=== PATIENT | female | born 1945 | race Caucasian/White ===

== ENCOUNTER → 2016-12-25 | Outpatient (CLI) | payer MEDICARE ==
[~2016-12-25] MED LIST: ACETAMINOPHEN325 M2 PO; ALBUTEROL0.09 MG/A2 IH; ASPIRIN81 M1 PO; ATENOLOL25 MG PO; AZITHROMYCIN250 MG PO; BACTRIM DS 8001 TA1 PO; BAYER ASPIRIN R81 MG; CATAPRES0.1 MG PO; CLINDAMYCIN150 MG PO; CLONIDINE0.1 MG PO; CLONIDINE0.3 MG PO; COREG12.5 MG PO; DELTASONE20 MG PO; FLONASE 0.05% 121 EA NAS; HYDROCODONE BIT1 T11 PO; IMODIUM A-D2 MG PO; KEFLEX250 MG PO; KEFLEX500 MG PO; LASIX40 MG PO; LEVOFLOXACIN500 MG PO; LISINOPRIL10 MG PO; LISINOPRIL20 MG PO; LISINOPRIL40 MG PO; LOPRESSOR25 MG PO; MUCINEX DM 30/61 TAB PO; NEPHRO-VITE1 TAB PO; NORVASC5 MG PO; PHOSLO667 M1 PO; PREDNISONE10 MG PO; PREDNISONE20 MG PO; PRILOSEC20 MG PO; PROTONIX TR40 MG PO; PROTONIX40 MG PO; QUINAPRIL20 MG PO; REGLAN10 MG PO; RENAL CAPS1 SGL PO; SENSIPAR60 MG PO; TENORMIN25 MG PO; ZESTRIL,PRINIVI10 MG PO; ZITHROMAX250 MG PO; Zofran4 MG PO; [UNRECOGNIZED DRUG - OTHER]
== END | disposition home or self-care (01) ==
LOC: RAD 10:51
DX: J44.9 Chronic obstructive pulmonary disease, unspecified (principal); R76.11 Nonspecific reaction to tuberculin skin test without active tuberculosis; F17.200 Nicotine dependence, unspecified, uncomplicated

== ENCOUNTER 2017-06-11 11:00 | Inpatient (IN) | payer MEDICARE ==
[~2017-06-11] VITALS: Ht 162.6 cm; Wt 63.1 kg
--- NOTE | ~2017-06-11 | PR ---
[place], [place] PROGRESS NOTE NAME: NAGA ROSARIO UNIT #: [id number] ROOM: 531 DOCTOR: JESSIKA SMILEY,SUNDEEP Enriquez BIRTHDATE: [birth year] DOS: 06/14/2017 SUBJECTIVE: The patient was seen and examined. She is awake and alert. She denies shortness of breath. She was on room air. She did have some "congestion." She states she is probably going to be discharged tomorrow. PHYSICAL EXAMINATION: VITAL SIGNS: Showed temperature 97.9, pulse 68, respiration 18, blood pressure 125/42. HEENT AND NECK: Shows no JVD. LUNGS: Had diminished breath sounds with no wheeze. HEART: Normal S1, S2. No rub, thrill or gallop. ABDOMEN: Soft, nontender. There is no organomegaly. EXTREMITIES: Showed no edema. LABORATORY DATA: Hemoglobin 10.0, white count of 5.4, platelets 204. Sodium 138, potassium 4.3, CO2 of 33, BUN 24, creatinine 4.8, glucose 81, calcium 8.4, phosphorus 3.9, magnesium 2.2, albumin of 3.5. ASSESSMENT AND PLAN:: 1. End-stage renal disease. The patient is on hemodialysis Friday, Friday and Friday. Next dialysis will be on Friday as planned and scheduled. 2. Anemia. We will give as needed erythropoietin stimulating agents with dialysis. 3. Tertiary hyperparathyroidism. The patient is on phosphorus binders as well as Sensipar. 4. Hypertension. Continue medications. From a renal standpoint, she is acceptable for discharge. SUNDEEP ROSEN MD CM:PNTRANS 29 23 SUNDEEP ROSEN MD 06/14/171923 interface
[~2017-06-11 11:00] MED LIST changes: +PHOSLYRA667 MG/51 PO
[2017-06-11 11:13] VITALS: BP 138/52
[2017-06-11 12:09] LABS: BASO # 0.1 10*3/uL (0.0-0.1); BASO % 1.1 % (0.0-1.0); EOS # 0.3 10*3/uL (0.0-0.4); EOS % 4.6 % (1.0-4.0); HEMATOCRIT 28.2 % (37.0-47.0); HEMOGLOBIN 9.5 g/dl (12.0-16.0); LYMPH # 0.8 10*3/uL (1.3-4.4); LYMPH % 14.2 % (27.0-41.0); MEAN CELL VOLUME 97.2 fl (81.0-99.0); MEAN CORPUSCULAR HGB 32.8 pg (27.0-31.0); MEAN CORPUSCULAR HGB CONC 33.7 g/dl (33.0-37.0); MEAN PLATELET VOLUME 11.2 fl (9.6-12.3); MONO # 0.4 10*3/uL (0.1-1.0); MONO % 6.6 % (3.0-9.0); NEUT # 4.1 10*3/uL (2.3-7.9); PLATELET COUNT AUTOMATED 200 10*3/uL (130-400); RED CELL DISTRI WIDTH 13.7 % (0-14.5); WHITE BLOOD COUNT 5.6 10*3/uL (4.8-10.8)
[2017-06-11 12:25] LABS: ALBUMIN 3.5 gm/dl (3.1-4.5); CREATININE 2.79 mg/dL (0.55-1.02); POTASSIUM 3.5 mmol/L (3.5-5.1); TOTAL PROTEIN 7.4 gm/dL (6.4-8.2)
[2017-06-11 12:58] VITALS: BP 149/51
[2017-06-11 14:45] VITALS: BP 142/60
--- NOTE | 2017-06-11 14:45 | NUR ---
A 71, admitted to , under the services of ASHU Huang DO with a diagnosis of CHF. Chief complaint is SHORTNESS OF BREATH AND COUGH LAST NIGHT, NONE TODAY. Patient arrived via stretcher from ER. Monitor applied. Initial assessment completed. Vital signs taken and recorded. ASHU HUANG DO notified of admission to the unit. Orders received. See assessment for past medical history, medications and allergies. Patient and/or family oriented to unit. [facility] visitation policy reviewed. Clothing/patient valuable form completed. MARIO VICTORIA
[2017-06-11 15:00] VITALS: BP 142/60
[2017-06-11] MEDS ORDERED: ONE DAILY1 EACH PO (15:44)
[2017-06-11 16:00] VITALS: BP 159/50
--- NOTE | 2017-06-11 18:36 | NUR ---
NOTIFIED OF ELEVATED TROPONIN. NO NEW ORDERS.
[2017-06-11 20:00] VITALS: BP 142/52; BP 155/79
--- NOTE | 2017-06-11 20:00 | NUR ---
LAB RESULTS AND ORDERS REVIEWED. PT RESTING IN BED. NO S AND S OF ACUTE DISTRESS NOTED AT THIS TIME. RESPS EASY AND UNLABORED. CALL LIGHT REINFORCED.
--- NOTE | 2017-06-11 21:20 | NUR ---
LAB NOTIFIED RN OF TROP 0.302. RN NOTIFIED DR WALTERS OF THIS VALUE. NO NEW ORDERS RECEIVED AT THIS TIME.
[2017-06-12] VITALS: BP 154/48
--- NOTE | 2017-06-12 00:02 | NUR ---
LAB NOTIFIED RN OF TROP 0.315. RN NOTIFIED DR WALTERS OF THIS VALUE. NO NEW ORDER RECEIVED.
[2017-06-12 04:00] VITALS: BP 139/84
--- NOTE | 2017-06-12 05:00 | NUR ---
PT RESTING IN BED WITH EYES CLOSED. RESPS EASY AND UNLABORED. TELE MONTIOR INTACT. CALL LIGHT IN REACH.
[2017-06-12 06:46] LABS: BASO # 0.1 10*3/uL (0.0-0.1); BASO % 0.9 % (0.0-1.0); EOS # 0.4 10*3/uL (0.0-0.4); EOS % 6.6 % (1.0-4.0); HEMATOCRIT 27.4 % (37.0-47.0); HEMOGLOBIN 9.1 g/dl (12.0-16.0); MEAN CELL VOLUME 97.9 fl (81.0-99.0); MEAN CORPUSCULAR HGB 32.5 pg (27.0-31.0); MEAN CORPUSCULAR HGB CONC 33.2 g/dl (33.0-37.0); MEAN PLATELET VOLUME 11.4 fl (9.6-12.3); MONO # 0.4 10*3/uL (0.1-1.0); MONO % 7.9 % (3.0-9.0); NEUT # 3.8 10*3/uL (2.3-7.9); NEUT % 67.1 % (47.0-73.0); PLATELET COUNT AUTOMATED 191 10*3/uL (130-400); RED CELL DISTRI WIDTH 13.5 % (0-14.5); WHITE BLOOD COUNT 5.6 10*3/uL (4.8-10.8)
[2017-06-12 07:19] LABS: CREATININE 4.84 mg/dL (0.55-1.02); PHOSPHOROUS 4.4 mg/dL (2.5-4.9); POTASSIUM 3.8 mmol/L (3.5-5.1)
[2017-06-12 07:27] LABS: THYROID STIM HORMONE (HS) 1.09 uIU/ml (0.358-4.75)
[2017-06-12 08:00] VITALS: BP 160/62
--- NOTE | 2017-06-12 08:04 | NUR ---
PT IN BED. LAYING DOWN. LIGHTS OFF. LUNGS DIMINISHED AND CLEAR. TRACE EDEMA NOTED. IV FLUSHED FOR PATENCY. PT IS PLEASANT AND COOPERATIVE. WILL CONTINUE TO MONITOR.
[2017-06-12 08:35] LABS: VITAMIN D, 25-HYDROXY 44.9 ng/mL (30-100)
--- NOTE | 2017-06-12 09:00 | NUR ---
Microeconomics Professor in to talk to patient. Patient states lives at home with , daughter has been staying. There are few steps in the home. Physician: hiren moreno Pharmacy: [facility] Home health services: none Patient's level of ADLs: INDEPENDENT Patient has working utilities: all working DME: none Follow-up physician's appointment after d/c: will be made by hospitalist nurse director upon discharge Does patient want to access PORTAL?: no Discharge plan discussed with patient, patient lives at home with , but states has been in a [facility] for the last few months, she also stated her daughter has been staying with her, she is independent in adls and ambulation, patient goes to dialysis friday, friday and friday, she states she drives occasionally, but daughter takes her wherever she needs to go and she also uses [facility] services for dialysis, irmatent states she will be going home when able, discussed with her [facility] and she refused any services at this time. KELLY SARMIENTO
[2017-06-12 12:00] VITALS: BP 141/51
--- NOTE | 2017-06-12 15:36 | NUR ---
PT REQUESTED MEDICATION FOR SORE THROAT AND DRY COUGH. PRN CEPACOL LOZENGE GIVEN. WILL CONTINUE TO MONITOR.
[2017-06-12 16:00] VITALS: BP 153/60
--- NOTE | 2017-06-12 16:13 | NUR ---
PER PT, PRN CEPACOL DROP WAS EFFECTVE FOR SORE THROAT IRRITATION. WILL CONTINUE TO MONITOR.
--- NOTE | 2017-06-12 17:12 | NUR ---
THIS NURSE OBSERVED THAT CARDIOLOGY HAS NOT SEEN THE PT YET. ANSWERING SERVICE NOTIFIED OF CONSULT FOR CARDIOLOGY AGAIN. AWAITING CALL BACK.
[2017-06-12 20:00] VITALS: BP 141/46
--- NOTE | 2017-06-12 22:54 | NUR ---
PATIENT LYING IN BED, TALKING ON PHONE. NO S/S OF DISTRESS. LUNGS ARE CLEAR, DIMINISHED. NO EDEMA NOTED. BRUIT/THRILL ARE POSITIVE. IV IN LAC INTACT WITH HEPLOCK.
[2017-06-13] VITALS: BP 184/42
[2017-06-13 07:38] LABS: BASO # 0.1 10*3/uL (0.0-0.1); BASO % 0.8 % (0.0-1.0); EOS # 0.6 10*3/uL (0.0-0.4); EOS % 8.8 % (1.0-4.0); HEMATOCRIT 27.3 % (37.0-47.0); HEMOGLOBIN 9.2 g/dl (12.0-16.0); LYMPH # 0.9 10*3/uL (1.3-4.4); LYMPH % 14.2 % (27.0-41.0); MEAN CELL VOLUME 96.1 fl (81.0-99.0); MEAN CORPUSCULAR HGB 32.4 pg (27.0-31.0); MEAN CORPUSCULAR HGB CONC 33.7 g/dl (33.0-37.0); MEAN PLATELET VOLUME 11.1 fl (9.6-12.3); MONO # 0.5 10*3/uL (0.1-1.0); MONO % 7.2 % (3.0-9.0); NEUT # 4.5 10*3/uL (2.3-7.9); NEUT % 68.7 % (47.0-73.0); PLATELET COUNT AUTOMATED 189 10*3/uL (130-400); RED BLOOD COUNT 2.84 10*6/uL (4.10-5.10); RED CELL DISTRI WIDTH 13.5 % (0-14.5); WHITE BLOOD COUNT 6.6 10*3/uL (4.8-10.8)
[2017-06-13 07:50] LABS: ALBUMIN 3.3 gm/dl (3.1-4.5); CREATININE 6.97 mg/dL (0.55-1.02); PHOSPHOROUS 4.7 mg/dL (2.5-4.9); POTASSIUM 4.4 mmol/L (3.5-5.1)
[2017-06-13 08:00] VITALS: BP 150/53
--- NOTE | 2017-06-13 10:45 | NUR ---
PATIENT NOT AVAILABLE FOR ECHO. SHE IS IN DIALYSIS.
[2017-06-13 12:00] VITALS: BP 135/50
--- NOTE | 2017-06-13 15:05 | NUR ---
TYLENOL GIVEN FOR C/O GENERALIZED DISCOMFORT. WILL MONITOR.
[2017-06-13 16:00] VITALS: BP 123/40
--- NOTE | 2017-06-13 19:57 | NUR ---
ASSUMED CARE OF PT. PT ASSESSED AND PLAN OF CARE IMPLIMENTED
[2017-06-13 20:00] VITALS: BP 137/48
[2017-06-14] VITALS: BP 139/57
[2017-06-14 06:54] LABS: BASO # 0.1 10*3/uL (0.0-0.1); BASO % 0.9 % (0.0-1.0); EOS # 0.6 10*3/uL (0.0-0.4); EOS % 11.1 % (1.0-4.0); HEMATOCRIT 29.8 % (37.0-47.0); LYMPH % 18.6 % (27.0-41.0); MEAN CELL VOLUME 97.4 fl (81.0-99.0); MEAN CORPUSCULAR HGB 32.7 pg (27.0-31.0); MEAN CORPUSCULAR HGB CONC 33.6 g/dl (33.0-37.0); MEAN PLATELET VOLUME 11.6 fl (9.6-12.3); MONO # 0.5 10*3/uL (0.1-1.0); NEUT # 3.2 10*3/uL (2.3-7.9); NEUT % 59.2 % (47.0-73.0); PLATELET COUNT AUTOMATED 204 10*3/uL (130-400); RED BLOOD COUNT 3.06 10*6/uL (4.10-5.10); RED CELL DISTRI WIDTH 13.5 % (0-14.5); WHITE BLOOD COUNT 5.4 10*3/uL (4.8-10.8)
[2017-06-14 07:32] LABS: POTASSIUM 4.3 mmol/L (3.5-5.1)
[2017-06-14 07:37] LABS: ALBUMIN 3.5 gm/dl (3.1-4.5); CREATININE 4.77 mg/dL (0.55-1.02); PHOSPHOROUS 3.9 mg/dL (2.5-4.9)
[2017-06-14 08:00] VITALS: BP 132/38
[2017-06-14 12:00] VITALS: BP 125/42
[2017-06-14 16:00] VITALS: BP 140/50
[2017-06-14 20:00] VITALS: BP 127/43
[2017-06-15] VITALS: BP 146/50
--- NOTE | 2017-06-15 04:35 | NUR ---
PATIENTS DIALYSIS SITE WAS POSITIVE FOR BRUIT AND THRILL.
[2017-06-15 08:00] VITALS: BP 158/53
[2017-06-15] MEDS ORDERED: AVPAK AZITHROM250 MG PO (10:25)
[2017-06-15] MEDS ORDERED: SUPRAX400 M2 PO (10:25)
[2017-06-15] MEDS ORDERED: TEMAZEPAM15 M1 PO (10:25)
--- NOTE | 2017-06-15 14:15 | NUR ---
Discharge instructions reviewed with patient/family. Patient receptive and verbalizes understanding. Follow-up care arranged. Written instructions given to patient/family.HEPLOCK REMOVED AND TELEMETRY ACCOUNTECD FOR. WERNER LOPEZ
== END 2017-06-15 14:15 | disposition home or self-care (01) | DRG 291 ==
LOC: ED 11:00 → 5E 13:55 → EDHOLD 13:55 → 5E 14:15
PROVIDERS: Internal Medicine; Internal Medicine Nephrology; Physician Assistant; ADMIT Internal Medicine
PROC: 5A1D70Z Performance of Urinary Filtration, Intermittent, Less than 6 Hours Per Day (ICD-10-PCS; principal; 2017-06-13)
PROC: 5A1D70Z Performance of Urinary Filtration, Intermittent, Less than 6 Hours Per Day (ICD-10-PCS; 2017-06-14)
DX: I13.2 Hypertensive heart and chronic kidney disease with heart failure and with stage 5 chronic kidney disease, or end stage renal disease (principal); N18.6 End stage renal disease; E87.8 Other disorders of electrolyte and fluid balance, not elsewhere classified; I50.43 Acute on chronic combined systolic (congestive) and diastolic (congestive) heart failure; D64.9 Anemia, unspecified; K21.9 Gastro-esophageal reflux disease without esophagitis; R07.89 Other chest pain; D72.824 Basophilia; R73.9 Hyperglycemia, unspecified; E21.2 Other hyperparathyroidism; R74.8 Abnormal levels of other serum enzymes; Z79.899 Other long term (current) drug therapy; Z88.5 Allergy status to narcotic agent; Z88.0 Allergy status to penicillin; Z88.8 Allergy status to other drugs, medicaments and biological substances; Z99.2 Dependence on renal dialysis; Z72.89 Other problems related to lifestyle; Z80.1 Family history of malignant neoplasm of trachea, bronchus and lung; Z80.0 Family history of malignant neoplasm of digestive organs; Z87.19 Personal history of other diseases of the digestive system

== ENCOUNTER 2017-07-15 23:24 | Emergency (ER) | payer MEDICARE ==
[~2017-07-15] VITALS: Wt 68.0 kg
--- NOTE | ~2017-07-15 | EKG ---
[place], [place] ELECTROCARDIOGRAM REPORT NAME: NAGA ROSARIO UNIT #: [id number] ROOM: DOCTOR: JORGE ARBOLEDA MD BIRTHDATE: [birth year] DOS: 07/15/2017 TIME: 2346 hours. IMPRESSION: 1. Sinus bradycardia at 53 beats per minute. 2. There is no first degree heart block. 3. Complete left bundle-branch block with a repolarization abnormality. 4. An abnormal ECG. 5. No previous tracing is available for comparison. JORGE ARBOLEDA MD CM:EKGRPT:ELECTROCARDIOGRAM REPORT [id number] JORGE ARBOLEDA MD
[~2017-07-15 23:24] MED LIST changes: +AVPAK AZITHROM250 MG PO; +ONE DAILY1 EACH PO; +SUPRAX400 M2 PO; +TEMAZEPAM15 M1 PO
[2017-07-16 00:16] LABS: BASO # 0.1 10*3/uL (0.0-0.1); BASO % 0.6 % (0.0-1.0); EOS # 0.5 10*3/uL (0.0-0.4); EOS % 5.5 % (1.0-4.0); HEMATOCRIT 27.8 % (37.0-47.0); HEMOGLOBIN 8.8 g/dl (12.0-16.0); LYMPH # 2.5 10*3/uL (1.3-4.4); LYMPH % 30.6 % (27.0-41.0); MEAN CELL VOLUME 105.3 fl (81.0-99.0); MEAN CORPUSCULAR HGB 33.3 pg (27.0-31.0); MEAN CORPUSCULAR HGB CONC 31.7 g/dl (33.0-37.0); MEAN PLATELET VOLUME 11.3 fl (9.6-12.3); MONO # 0.8 10*3/uL (0.1-1.0); MONO % 9.5 % (3.0-9.0); NEUT # 4.4 10*3/uL (2.3-7.9); NEUT % 53.4 % (47.0-73.0); PLATELET COUNT AUTOMATED 207 10*3/uL (130-400); RED BLOOD COUNT 2.64 10*6/uL (4.10-5.10); RED CELL DISTRI WIDTH 14.1 % (0-14.5); WHITE BLOOD COUNT 8.2 10*3/uL (4.8-10.8)
[2017-07-16 00:26] LABS: ACT PARTIAL THROMBO TIME 25.9 SECONDS (20.8-31.5); INTERNATIONAL NORM RATIO 1.1 (2.0-3.5)
[2017-07-16 00:34] LABS: ALBUMIN 2.6 gm/dl (3.1-4.5); CREATININE 7.17 mg/dL (0.55-1.02); POTASSIUM 4.9 mmol/L (3.5-5.1); TOTAL PROTEIN 5.3 gm/dL (6.4-8.2)
[2017-07-16 00:46] LABS: TROPONIN I 0.326 ng/ml (<0.045)
== END 2017-07-16 00:10 | disposition short-term general hospital (02) ==
LOC: ED 23:24
PROVIDERS: Student in an Organized Health Care Education/Training Program
DX: S41.111A Laceration without foreign body of right upper arm, initial encounter (principal); J96.90 Respiratory failure, unspecified, unspecified whether with hypoxia or hypercapnia; D62 Acute posthemorrhagic anemia; F10.10 Alcohol abuse, uncomplicated; X58.XXXA Exposure to other specified factors, initial encounter; Y93.89 Activity, other specified; Y92.89 Other specified places as the place of occurrence of the external cause; Y99.8 Other external cause status; Z88.0 Allergy status to penicillin; Z88.8 Allergy status to other drugs, medicaments and biological substances; Z79.899 Other long term (current) drug therapy

== ENCOUNTER → 2017-07-24 | Outpatient (CLI) | payer MEDICARE | END | disposition home or self-care (01) | LOC: US 12:23 | DX: N93.9 Abnormal uterine and vaginal bleeding, unspecified (principal); D25.9 Leiomyoma of uterus, unspecified ==

== ENCOUNTER → 2017-08-28 | Day surgery (SDC) | payer MEDICARE ==
[~2017-08-28] VITALS: Ht 162.5 cm; Wt 64.0 kg
[~2017-08-28] MED LIST changes: +NORCO 5-325 TA1 EACH PO
--- NOTE | ~2017-08-28 | PROC NOTE ---
[place], [place] PROCEDURE NOTE NAME: NAGA ROSARIO UNIT #: [id number] ROOM: DOCTOR: GERSON CANO MD BIRTHDATE: [birth year] DOS: 08/28/2017 PREOPERATIVE DIAGNOSIS: Back cyst. POSTOPERATIVE DIAGNOSIS: Back cyst. PROCEDURE: Excision of back cyst. SURGEON: Gerson Cano MD WEAVING LOOM OPERATOR: LAURI. ANESTHESIA: MAC with local (8 mL of 1% plain lidocaine). INDICATIONS: This is a 71-year-old lady who is here for an excision of a back cyst. The procedure and its complications were explained to the patient in detail. Complications that were discussed included but were not limited to bleeding, infection, hematoma/seroma/abscess formation and prolonged pain. She agreed to proceed. DESCRIPTION OF PROCEDURE: After identifying the patient, the patient was brought to the operating suite and placed in the right lateral position. After time-out procedure was called, IV sedation was administered by the anesthesia team. The parts were then painted and draped in the usual sterile fashion. An incision was marked in a transverse fashion over the cyst and local anesthesia (1% plain lidocaine) was injected in the line of the marked incision. Incision was made with the help of a knife and deepened in layers. The cyst was identified and excised in its entirety with the help of blunt and sharp dissection. It was sent for histopathological diagnosis. Hemostasis was achieved with the help of electrocautery. Thereafter, the subcutaneous tissue was approximated with the help of interrupted 3-0 Vicryl and the skin edges were approximated with the help of subcuticular 4-0 Vicryl. Dressing was placed. The patient tolerated the procedure well and was brought back to the recovery room in stable fashion. There were no complications. Dr. Gerson Cano, the attending surgeon, was present throughout the operating case. Gerson Cano MD CM:PROCNOTE:PROCEDURE NOTE [id number] GERSON CANO MD
[2017-08-28 07:05] VITALS: BP 151/60
[2017-08-28 07:53] VITALS: BP 117/49
[2017-08-28 08:08] VITALS: BP 101/35
[2017-08-28 08:19] VITALS: BP 117/43
== END ==
LOC: SDC 08-26 11:00
DX: L72.0 Epidermal cyst (principal); I13.2 Hypertensive heart and chronic kidney disease with heart failure and with stage 5 chronic kidney disease, or end stage renal disease; N18.6 End stage renal disease; I50.9 Heart failure, unspecified; Z99.2 Dependence on renal dialysis; K58.9 Irritable bowel syndrome, unspecified; J44.9 Chronic obstructive pulmonary disease, unspecified; Z86.14 Personal history of Methicillin resistant Staphylococcus aureus infection; I25.10 Atherosclerotic heart disease of native coronary artery without angina pectoris; I25.2 Old myocardial infarction; Z80.9 Family history of malignant neoplasm, unspecified; Z87.891 Personal history of nicotine dependence; Z98.890 Other specified postprocedural states; Z79.899 Other long term (current) drug therapy; Z88.0 Allergy status to penicillin; Z88.8 Allergy status to other drugs, medicaments and biological substances

== ENCOUNTER → 2017-09-18 | Outpatient (CLI) | payer MEDICARE | END | disposition home or self-care (01) | LOC: US 13:47 | DX: M79.89 Other specified soft tissue disorders (principal); R60.0 Localized edema ==

== ENCOUNTER 2017-10-02 04:09 | Inpatient (IN) | payer MEDICARE ==
[2017-10-02] VITALS (10 sets, daily range): BP systolic 141–195; BP diastolic 60–89
[~2017-10-02] VITALS: Ht 162.5 cm; Wt 66.8 kg
--- NOTE | ~2017-10-02 | CON ---
[place], [place] REPORT OF CONSULTATION NAME: NAGA ROSARIO UNIT #: [id number] ROOM: [facility] DOCTOR: KRISTY SMILEY,DARLENE BIRTHDATE: [birth year] DOS: 10/02/2017 REASON FOR CONSULTATION: Elevated troponin and congestive heart failure. CLINICAL HISTORY: The patient is a 72-year-old patient with history of hypertension, valvular heart disease, tobacco smoking, end-stage renal disease, on dialysis, came to the Emergency Room with some upper back pain as well as shortness of breath. The patient underwent the sleep study today, but she was brought to the Emergency Room because of her back pain and shortness of breath but she denied any exertional chest pains or palpitation, no dizziness. She denies any PND, orthopnea. No fever or chills. No nausea, vomiting, diarrhea. No jaundice. No genitourinary symptoms. No neurologic symptoms. The patient has a history of right bundle branch block and her troponin was 0.62, hence Cardiology consulted for further recommendations. The patient underwent further labs including CK-MB which were unremarkable. REVIEW OF SYSTEMS: Review of ten systems negative except as mentioned above. PAST MEDICAL HISTORY: 1. Paroxysmal atrial fibrillation. 2. Hypertension. 3. Valvular heart disease. 4. Tobacco use. PAST SURGICAL HISTORY: The patient had AV fistula and a history of tympanoplasty. SOCIAL HISTORY: The patient does not use any illicit drugs, does not drink or smoke, but she quit smoking about 40 years ago. FAMILY HISTORY: Noncontributory due to her age. ALLERGIES: Reviewed. HOME MEDICATIONS: Reviewed. PHYSICAL EXAMINATION: VITAL SIGNS: Blood pressure and the heart rates are stable. Respiratory is 16. GENERAL: Alert, comfort, in no acute distress. HEENT: Pupils are equal, no jaundice. NECK: Supple, no distended neck veins, no carotid bruit. CHEST: Symmetrical, nontender. LUNGS: A few scattered rhonchi. HEART: Regular rhythm, no S3, grade 2/6 systolic murmur. No palpable thrills. ABDOMEN: Benign, nontender. Bowel sounds normal. EXTREMITIES: Showed a trace to 1+ edema and distal pulses are palpable. SKIN: Warm and dry. No cyanosis, no clubbing. NEUROLOGIC: The patient is alert, oriented. No focal neurologic deficit. REVIEW OF THE DIAGNOSTIC TESTS: EKG, labs, and imaging studies reviewed. Echo [place], [place] REPORT OF CONSULTATION NAME: NAGA ROSARIO UNIT #: [id number] ROOM: [facility] DOCTOR: KRISTY SMILEY,DARLENE BIRTHDATE: [birth year] from 05/2007 reviewed, which showed EF of 50-55% with [id number] mitral regurgitation, knoe-hu-hsdlvdta tricuspid regurgitation. The pertinent labs include hemoglobin 12.5, platelets 175,000. Creatinine 4.75. Troponin 0.62. CK-MB negative. IMPRESSION: 1. Borderline elevation of troponin due to chronic kidney disease. The patient has no chest pain and CK-MB is negative. 2. Acute on chronic diastolic heart failure. 3. Left bundle branch block. 4. Hypertension. 5. Valvular heart disease. 6. End-stage renal disease. RECOMMENDATIONS: 1. Continue current medications. 2. I would discontinue her heparin and the patient counseled to quit smoking. 3. Check 2D echo for LV function and valvular function. 4. There is no family at bedside. 5. Continue current medications. 6. Continue her home medications. If the blood pressure is stable, she can be discharged home from the cardiac standpoint. 7. The patient has no chest pain, no acute heart failure. Above treatment plan discussed with the patient and all questions were answered. DARLENE WAGNER MD CM:CONSTR:REPORT OF CONSULTATION 2224 10/03/17 0021 interface
[~2017-10-02 04:09] MED LIST changes: +SENSIPAR30 MG PO
[2017-10-02 04:47] LABS: BASO % 0.6 % (0.0-1.0); EOS # 0.7 10*3/uL (0.0-0.4); HEMATOCRIT 38.5 % (37.0-47.0); HEMOGLOBIN 12.5 g/dl (12.0-16.0); LYMPH # 0.9 10*3/uL (1.3-4.4); LYMPH % 12.9 % (27.0-41.0); MEAN CELL VOLUME 96.3 fl (81.0-99.0); MEAN CORPUSCULAR HGB 31.3 pg (27.0-31.0); MEAN CORPUSCULAR HGB CONC 32.5 g/dl (33.0-37.0); MEAN PLATELET VOLUME 11.8 fl (9.6-12.3); MONO # 0.6 10*3/uL (0.1-1.0); MONO % 8.6 % (3.0-9.0); NEUT # 4.7 10*3/uL (2.3-7.9); NEUT % 67.6 % (47.0-73.0); PLATELET COUNT AUTOMATED 178 10*3/uL (130-400); RED CELL DISTRI WIDTH 13.2 % (0-14.5)
[2017-10-02 04:57] LABS: ACT PARTIAL THROMBO TIME 26.7 SECONDS (20.8-31.5)
[2017-10-02 05:03] LABS: ALBUMIN 3.4 gm/dl (3.1-4.5); CREATININE 4.75 mg/dL (0.55-1.02); POTASSIUM 4.2 mmol/L (3.5-5.1); TOTAL PROTEIN 7.2 gm/dL (6.4-8.2)
[2017-10-02 05:07] LABS: TROPONIN I 0.644 ng/ml (<0.045)
[2017-10-02 07:46] LABS: TROPONIN I 0.625 ng/ml (<0.045)
[2017-10-02] MEDS ORDERED: NEPHRO-VITE TA0.8 MG PO (09:27)
[2017-10-02] MEDS ORDERED: LISINOPRIL20 MG PO (09:32)
[2017-10-02 10:59] LABS: CKMB 2.6 ng/ml (0.5-3.6)
[2017-10-02 11:01] LABS: TROPONIN I 0.576 ng/ml (<0.045)
[2017-10-02 14:05] LABS: CKMB 2.6 ng/ml (0.5-3.6)
[2017-10-02 14:06] LABS: TROPONIN I 0.579 ng/ml (<0.045)
== END 2017-10-02 19:14 | disposition home or self-care (01) | DRG 280 ==
LOC: ED 04:09 → EDHOLD 05:24 → ICCU 05:35
PROVIDERS: Internal Medicine Nephrology; Student in an Organized Health Care Education/Training Program
DX: I21.4 Non-ST elevation (NSTEMI) myocardial infarction (principal); N18.6 End stage renal disease; E87.1 Hypo-osmolality and hyponatremia; E87.8 Other disorders of electrolyte and fluid balance, not elsewhere classified; I13.2 Hypertensive heart and chronic kidney disease with heart failure and with stage 5 chronic kidney disease, or end stage renal disease; I50.33 Acute on chronic diastolic (congestive) heart failure; I38 Endocarditis, valve unspecified; E83.41 Hypermagnesemia; R65.10 Systemic inflammatory response syndrome (SIRS) of non-infectious origin without acute organ dysfunction; I48.0 Paroxysmal atrial fibrillation; I16.1 Hypertensive emergency; K58.9 Irritable bowel syndrome, unspecified; I44.7 Left bundle-branch block, unspecified; E78.1 Pure hyperglyceridemia; R73.9 Hyperglycemia, unspecified; Z99.2 Dependence on renal dialysis; Z79.899 Other long term (current) drug therapy; Z88.6 Allergy status to analgesic agent; Z88.0 Allergy status to penicillin; Z88.8 Allergy status to other drugs, medicaments and biological substances; Z80.1 Family history of malignant neoplasm of trachea, bronchus and lung; Z80.0 Family history of malignant neoplasm of digestive organs; Z87.891 Personal history of nicotine dependence; Z79.82 Long term (current) use of aspirin

== ENCOUNTER → 2017-11-21 | Outpatient (CLI) | payer MEDICARE ==
[~2017-11-21] MED LIST changes: +NEPHRO-VITE TA0.8 MG PO
== END | disposition home or self-care (01) ==
LOC: LAB 10:32
DX: D64.9 Anemia, unspecified (principal); R53.83 Other fatigue

== ENCOUNTER → 2018-01-14 | Outpatient (CLI) | payer MEDICARE, MEDICAID ==
[~2018-01-14] MED LIST changes: +ASPIRIN ADULT L81 M2 PO; +CARVEDILOL25 MG PO; +CLEOCIN HCL300 MG PO; +IMDUR SA60 M1 PO; +ULTRAM50 MG PO; +VISTARIL25 MG PO
== END | disposition home or self-care (01) ==
LOC: US 16:00
DX: M79.89 Other specified soft tissue disorders (principal); M79.601 Pain in right arm

== ENCOUNTER 2018-01-21 06:21 | Inpatient (IN) | payer MEDICARE, MEDICAID ==
[2018-01-21] VITALS (7 sets, daily range): BP systolic 92–180; BP diastolic 52–74
[~2018-01-21] VITALS: Ht 162.6 cm; Wt 60.0 kg
--- NOTE | ~2018-01-21 | EKG ---
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 Electronically Signed On 01-21-2018 20:49:30 PDT by James Wooten MD CM:EKGRPT:ELECTROCARDIOGRAM REPORT 48 SHANI BAPTISTE DRAFT REPORT SHANI WILSON DO
--- NOTE | ~2018-01-21 | PR ---
[place], [place] PROGRESS NOTE NAME: [id number] UN[facility] #: [id number] ROOM: 421 DOCTOR: SANTHOSH WHALEN MD BIRTHDATE: [birth year] DOS: 01/23/2018 CARDIOLOGY PROGRESS NOTE SUBJECTIVE: The patient was seen at her stress test this morning in the Cardiology Department just prior to her test being done. She apparently was doing well yesterday until last evening when she had a "spell." A rapid response was called. There was some concern about facial drooping. A CT of the brain was done stat and showed chronic small vessel change and volume loss. There was no acute intracranial finding. Blood gases showed a pH of 7.398 with a pCO2 of 45.5, a pO2 of 69.1 and a bicarbonate of 27.5. The patient's symptoms resolved spontaneously. She states that she has not had any further chest pain for the last few days. PHYSICAL EXAMINATION: VITAL SIGNS: Today, her pulse is 65 and regular, blood pressure is 112/46. She is afebrile. She weighs 62.3 kg and has a body mass index 23.6. NECK: Supple. She has no jugular distention. Carotids are full. LUNGS: Respirations are unlabored. Her chest is clear. HEART: Has a regular rhythm. She has an S4 gallop. ABDOMEN: Benign. EXTREMITIES: Showed no edema. LABORATORY DATA: Echocardiogram 01/22/2018 showed normal left ventricular size with a sigmoid deformity of the basal septum. There was global hypokinesis of the left ventricle with an ejection fraction of 40% and stage 2 diastolic dysfunction. Left atrium is moderately enlarged. She has aortic sclerosis with mild aortic insufficiency, but no stenosis. She has dense mitral annular calcifications with mild mitral insufficiency and no stenosis. She has mild tricuspid insufficiency with mildly elevated right ventricular systolic pressures. The ascending aorta is mildly dilated at 4.0 cm. Laboratory studies this morning showed hemoglobin of 11.8, white count 12,500, platelet count 154,000. Sodium 138, potassium 5.2, chloride 97, CO2 of 29, BUN 41, creatinine 7.62. IMPRESSION: 1. Chest pain, etiology to be determined. 2. End-stage renal disease, on dialysis. 3. Chronic combined systolic and diastolic heart failure. 4. No documented history of coronary artery disease, but the patient does have left ventricular systolic and diastolic dysfunction. 5. Left bundle branch block. 6. Mild mitral insufficiency. PLAN: We will continue her current medical regimen for now. A pharmacologic stress test will be done in order to help determine her coronary status. This will help us plan medical therapies and predict prognosis. However, given her other medical problems, we will still remain conservative in her overall management. [place], [place] PROGRESS NOTE NAME: NAGA ROSARIO [id number] UNIT #: [id number] ROOM: 421 DOCTOR: SANTHOSH WHALEN MD BIRTHDATE: [birth year] I thank the hospitalist physicians for asking our advice regarding her care. ADDENDUM I reviewed the patient's stress test from earlier today. It does show that she has significant left ventricular dilation. Her left ventricular volume is about twice normal. She is globally hypokinetic with an ejection fraction of 37%. She did not show transient cavity dilation post-stress. Perfusion images do show a moderate-sized mildly reversible ischemic defect in the anterior wall along with a moderate-sized mostly fixed defect in the inferior wall associated with some adryan-infarction reversible ischemia. The study is compatible with 2-vessel disease. Her risk for a future heart cardiac event is [id number]; however, she does have multiple medical problems and is not an ideal candidate for an invasive management strategy. I would maximize her beta blockers, continue her on nitrates, aspirin, and observe her. I would not plan on catheterization at this time. SANTHOSH WHALEN MD CM:PNTRANS [id number] SANTHOSH WHALEN MD 01/23/18 2220 interface
--- NOTE | ~2018-01-21 | EKG ---
[place], [place] ELECTROCARDIOGRAM REPORT NAME: NAGA ROSARIO UNIT #: [id number] ROOM: 421 DOCTOR: GUME DRAFT REPORT BIRTHDATE: [birth year] [facility] Test Date: 2018-01-22 Test Time: 16:52:10 Pat Name: NAGA ROSARIO Department: Room: 421 Gender: F Control Officer: : 1945 Requested By: WENDY MASTERSON Order Number: [id number] Reading MD: James Wooten MD Measurements Intervals [place] Rate: 85 P: 21 MN: 221 QRS: -2 QRSD: 171 T: 191 QT: 474 QTc: 564 Interpretive Statements Sinus rhythm Prolonged MN interval Left bundle branch block Compared to ECG 01/21/2018 13:03:07 No significant changes Electronically Signed On 01-22-2018 20:45:03 PDT by James Wooten MD CM:EKGRPT:ELECTROCARDIOGRAM REPORT 44 WENDY BAPTISTE DRAFT REPORT WENDY MASTERSON DO
--- NOTE | ~2018-01-21 | EKG ---
[place], [place] ELECTROCARDIOGRAM REPORT NAME: NAGA ROSARIO UNIT #: [id number] ROOM: [facility] DOCTOR: GUME DRAFT REPORT BIRTHDATE: [birth year] [facility] Test Date: 2018-01-21 Test Time: 13:03:07 Pat Name: NAGA ROSARIO Department: Room: Gender: F Knee Bolter: : 1945 Requested By: SHANI WILSON Order Number: [id number] Reading MD: James Wooten MD Measurements Intervals [place] Rate: 74 P: 26 RI: 224 QRS: 28 QRSD: 177 T: 215 QT: 492 QTc: 546 Interpretive Statements Sinus rhythm Prolonged RI interval Left bundle branch block No change from earlier ECG this date. Electronically Signed On 01-21-2018 20:57:16 PDT by James Wooten MD CM:EKGRPT:ELECTROCARDIOGRAM REPORT 1303 56 SHANI BAPTISTE DRAFT REPORT SHANI WILSON DO
--- NOTE | ~2018-01-21 | EKG ---
[place], [place] ELECTROCARDIOGRAM REPORT NAME: NAGA ROSARIO UNIT #: [id number] ROOM: 421 DOCTOR: GUME DRAFT REPORT BIRTHDATE: [birth year] [facility] Test Date: 2018-01-24 Test Time: 08:40:07 Pat Name: NAGA ROSARIO Department: Room: 421 1 Gender: F Egg Separator: Salome Gutiérrez : 1945 Requested By: LIBRA HUMPHRIES Order Number: [id number] Reading MD: Josefina Gastelum MD Measurements Intervals [place] Rate: 62 P: 4 NM: 232 QRS: 6 QRSD: 184 T: 178 QT: 528 QTc: 537 Interpretive Statements Sinus rhythm Prolonged NM interval Left bundle branch block Compared to ECG 01/22/2018 16:52:10 No significant changes Electronically Signed On 01-25-2018 11:10:52 PDT by Josefina Gastelum MD CM:EKGRPT:ELECTROCARDIOGRAM REPORT [id number] LIBRA BAPTISTE DRAFT REPORT LIBRA HUMPHRIES DO
--- NOTE | ~2018-01-21 | PR ---
[place], [place] PROGRESS NOTE NAME: NAGA ROSARIO UNIT #: [id number] ROOM: 421 DOCTOR: SUNDEEP ROSEN MD BIRTHDATE: [birth year] DOS: 01/24/2018 NEPHROLOGY FOLLOWUP NOTE SUBJECTIVE: The patient was seen and examined. She just completed her ultrafiltration treatment today. She is having difficulties with her tunneled dialysis catheter and Cathflo was instilled last night. She was run at low blood flows she did get through her treatment. She denies shortness of breath, fevers, chills, or night sweats. PHYSICAL EXAMINATION: VITAL SIGNS: Temperature 98.1, pulse 61, respiration rate 18, blood pressure 152/51. HEENT: Shows no JVD. LUNGS: Diminished breath sounds, but no wheeze. HEART: S1, S2. No rub, thrill, or gallop. ABDOMEN: Soft, nontender. There is no organomegaly. EXTREMITIES: Showed no edema. SKIN: Showed no rash. LABORATORY DATA: Hemoglobin 12, white count of 7.2, platelets 159. BUN 56, creatinine 8.7, sodium 136, potassium was 5.8, CO2 of 28, calcium 9.8, phosphorus 7.9, magnesium 2.7. ASSESSMENT AND PLAN: 1. End-stage renal disease on hemodialysis Friday, Friday, Friday through a tunneled dialysis catheter. The patient had a shortened dialysis treatment today in view of her recent poor clearances and poor catheter function. Plan for dialysis again on Friday. She does have already set up to be seen at the outpatient access center for a possible new dialysis catheter placement. 2. Anemia. Her H and H are above target. No need for ESAs. 3. Hypertension. Blood pressure is stable. Continue meds. 4. Tertiary hyperparathyroidism. The patient is on Sensipar and PhosLo. From renal standpoint, she is acceptable for discharge. [place], [place] PROGRESS NOTE NAME: NAGA ROSARIO UNIT #: [id number] ROOM: 421 DOCTOR: SUNDEEP ROSEN MD BIRTHDATE: [birth year] SUNDEEP ROSEN MD CM:PNTRANS 1406 [id number] SUNDEEP ROSEN MD 01/24/18 2314 interface
--- NOTE | ~2018-01-21 | EKG ---
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
--- NOTE | ~2018-01-21 | PR ---
[place], [place] PROGRESS NOTE [id number] UN[facility] #: [id number] ROOM: 421 DOCTOR: SANTHOSH WHALEN MD BIRTHDATE: [birth year] DOS: 01/23/2018 ADDENDUM I reviewed the patient's stress test from earlier today. It does show that she has significant left ventricular dilation. Her left ventricular volume is about twice normal. She is globally hypokinetic with an ejection fraction of 37%. She did not show transient cavity dilation post-stress. Perfusion images do show a moderate-sized mildly reversible ischemic defect in the anterior wall along with a moderate-sized mostly fixed defect in the inferior wall associated with some adryan-infarction reversible ischemia. The study is compatible with 2-vessel disease. Her risk for a future heart cardiac event is [id number]; however, she does have multiple medical problems and is not an ideal candidate for an invasive management strategy. I would maximize her beta blockers, continue her on nitrates, aspirin, and observe her. I would not plan on catheterization at this time. SANTHOSH WHALEN MD CM:PNTRANS 1424 [id number] SANTHOSH WHALEN MD 01/23/182219 interface
--- NOTE | ~2018-01-21 | PR ---
[place], [place] PROGRESS NOTE NAME: [facility]IO [id number] UNIT #: [id number] ROOM: [facility]- DOCTOR: SANTHOSH WHALEN MD BIRTHDATE: [birth year] DOS: 01/22/2018 CARDIOLOGY PROGRESS NOTE SUBJECTIVE: The patient was seen at her bedside in the intensive care unit today 01/22/2018 for followup of chest pain. She is a 72-year-old woman with a history of end-stage renal disease, hemodialysis, hypertension, diastolic heart failure, valvular heart disease, anxiety, and dementia. She came into the hospital on 01/21/2018 with chest discomfort. According to family, she has not been herself lately and has been much more confused. She cannot describe or quantify her pain in anyway. She was treated with nitrates and does seem to be doing better. She did tolerate dialysis yesterday. She was in heart failure on admission and did receive ultrafiltration. Her fluid status looks better today. She has not had any chest pain since yesterday that she could recall. PHYSICAL EXAMINATION: VITAL SIGNS: Today, her pulse is 77 and regular, blood pressure is 115/53. She is afebrile. NECK: Supple. She has no jugular distention or hepatojugular reflux. Carotids are full. LUNGS: Respirations are unlabored. Chest is clear. HEART: Has regular rhythm and S4 gallop. ABDOMEN: Soft and normally active without masses, organomegaly, or bruits. EXTREMITIES: Showed no edema. Peripheral pulses are palpable in the feet. She has no peripheral edema. LABORATORY DATA: Her hemoglobin is 14, white count 14,500. Sodium 137, potassium 4.9, BUN 21, creatinine 5.68. Serial troponin levels have been elevated, but do not show a typical rise and fall pattern. She has a troponin level of around 0.3 and this is consistent with her end-stage renal failure rather than an acute coronary event. IMPRESSION: 1. Chest pain, etiology to be determined. 2. End-stage renal disease, on dialysis. 3. Chronic diastolic heart failure. 4. No documented history of coronary artery disease. 5. Left bundle-branch block. 6. Mitral insufficiency, which has been described as severe on an echocardiogram done in 09/2017. PLAN: The patient appears clinically well on her current regimen. We will switch her from topical to oral nitrates. Since she has stabilized, we will plan on a pharmacologic stress test within the next 24 hours to help determine her current status and help plan therapy and predict prognosis. We thank the hospitalist physicians for asking our advice regarding her care. [place], [place] PROGRESS NOTE NAME: NAGA ROSARIO UNIT #: [id number] ROOM: [facility] DOCTOR: SANTHOSH WHALEN MD BIRTHDATE: [birth year] SANTHOSH WHALEN MD CM:PNTRANS SANTHOSH WHALEN MD 01/22/18 0856 interface
--- NOTE | ~2018-01-21 | PR ---
[place], [place] PROGRESS NOTE NAME: NAGA ROSARIO UNIT #: [id number] ROOM: 421 DOCTOR: SUNDEEP ROSEN MD BIRTHDATE: [birth year] DOS: 01/25/2018 NEPHROLOGY FOLLOWUP NOTE SUBJECTIVE: The patient was seen and examined today. She is lying in bed. She denied shortness of breath, nausea, or vomiting. Seems there are plans for discharge today. She had no major complaints to me. PHYSICAL EXAMINATION: VITAL SIGNS: Showed temperature 98.2, pulse 61, respiration rate 18, blood pressure 160/58. HEENT: Shows no JVD. LUNGS: Diminished breath sounds, but no wheeze. HEART: S1, S2. No rub, thrill, or gallop. ABDOMEN: Soft, nontender. There is no organomegaly. EXTREMITIES: Showed no edema. LABORATORY DATA: Sodium 137, potassium 4.3, BUN 43, creatinine 6.3, glucose 107, calcium 10, phosphorus 5.8. ASSESSMENT AND PLAN: 1. End-stage renal disease. The patient is on hemodialysis Friday, Friday, and Friday. She had an extra dialysis session on Friday due to poor clearances. There are plans for a dialysis catheter change/exchange tomorrow. She will continue dialysis as an outpatient in the clinic. 2. Anemia. No need for ESAs at this time. 3. Hypertension. Continue medications. 4. Tertiary hyperparathyroidism. Continue Sensipar and PhosLo. The patient is okay for discharge from a renal standpoint. SUNDEEP ROSEN MD CM:PNTRANS [phone] SUNDEEP ROSEN MD 01/25/18 2320 interface
[~2018-01-21 06:21] MED LIST changes: -ASPIRIN ADULT L81 M2 PO; -CARVEDILOL25 MG PO; -CLEOCIN HCL300 MG PO; -IMDUR SA60 M1 PO; -ULTRAM50 MG PO; -VISTARIL25 MG PO
[2018-01-21 07:00] LABS: BASO # 0.1 10*3/uL (0.0-0.1); EOS # 0.2 10*3/uL (0.0-0.4); EOS % 3.9 % (1.0-4.0); HEMATOCRIT 39.1 % (37.0-47.0); HEMOGLOBIN 12.4 g/dl (12.0-16.0); LYMPH # 0.8 10*3/uL (1.3-4.4); MEAN CELL VOLUME 102.1 fl (81.0-99.0); MEAN CORPUSCULAR HGB 32.4 pg (27.0-31.0); MEAN CORPUSCULAR HGB CONC 31.7 g/dl (33.0-37.0); MEAN PLATELET VOLUME 11.7 fl (9.6-12.3); MONO # 0.5 10*3/uL (0.1-1.0); MONO % 8.4 % (3.0-9.0); NEUT # 4.3 10*3/uL (2.3-7.9); NEUT % 73.4 % (47.0-73.0); PLATELET COUNT AUTOMATED 178 10*3/uL (130-400); RED BLOOD COUNT 3.83 10*6/uL (4.10-5.10); RED CELL DISTRI WIDTH 15.6 % (0-14.5); WHITE BLOOD COUNT 5.8 10*3/uL (4.8-10.8)
[2018-01-21 07:22] LABS: ACT PARTIAL THROMBO TIME 27.5 SECONDS (20.8-31.5); INTERNATIONAL NORM RATIO 1.1 (2.0-3.5)
[2018-01-21 07:35] LABS: ALBUMIN 3.8 gm/dl (3.1-4.5); CREATININE 7.92 mg/dL (0.55-1.02); POTASSIUM 4.2 mmol/L (3.5-5.1); TOTAL PROTEIN 7.4 gm/dL (6.4-8.2)
[2018-01-21 07:38] LABS: TROPONIN I 0.323 ng/ml (<0.045)
[2018-01-21] MEDS ORDERED: CLEOCIN HCL300 MG PO (11:09)
[2018-01-21] MEDS ORDERED: VISTARIL25 MG PO (11:10)
[2018-01-21] MEDS ORDERED: ULTRAM50 MG PO (11:10)
[2018-01-22] VITALS (8 sets, daily range): BP systolic 94–136; BP diastolic 41–59
[2018-01-22 06:34] LABS: ALBUMIN 3.5 gm/dl (3.1-4.5); CREATININE 5.68 mg/dL (0.55-1.02); HEMATOCRIT 45.1 % (37.0-47.0); MEAN CELL VOLUME 103.4 fl (81.0-99.0); MEAN CORPUSCULAR HGB 32.1 pg (27.0-31.0); MEAN PLATELET VOLUME 12.1 fl (9.6-12.3); PHOSPHOROUS 6.5 mg/dL (2.5-4.9); PLATELET COUNT AUTOMATED 157 10*3/uL (130-400); POTASSIUM 4.9 mmol/L (3.5-5.1); RED BLOOD COUNT 4.36 10*6/uL (4.10-5.10); RED CELL DISTRI WIDTH 15.1 % (0-14.5); TOTAL PROTEIN 7.2 gm/dL (6.4-8.2); WHITE BLOOD COUNT 14.5 10*3/uL (4.8-10.8)
[2018-01-22 06:44] LABS: INTERNATIONAL NORM RATIO 1.1 (2.0-3.5)
[2018-01-22 08:23] LABS: PLATELET SUFFICIENCY NORMAL (NORMAL); TOTAL CELLS COUNTED 100 #CELLS
[2018-01-22 17:25] LABS: HEMATOCRIT 39.9 % (37.0-47.0); HEMOGLOBIN 12.6 g/dl (12.0-16.0); MEAN CELL VOLUME 103.1 fl (81.0-99.0); MEAN CORPUSCULAR HGB 32.6 pg (27.0-31.0); MEAN CORPUSCULAR HGB CONC 31.6 g/dl (33.0-37.0); MEAN PLATELET VOLUME 12.4 fl (9.6-12.3); PLATELET COUNT AUTOMATED 167 10*3/uL (130-400); RED BLOOD COUNT 3.87 10*6/uL (4.10-5.10); RED CELL DISTRI WIDTH 15.2 % (0-14.5); WHITE BLOOD COUNT 13.3 10*3/uL (4.8-10.8)
[2018-01-22 17:36] LABS: CREATININE 6.75 mg/dL (0.55-1.02); PHOSPHOROUS 7.3 mg/dL (2.5-4.9); POTASSIUM 5.3 mmol/L (3.5-5.1)
[2018-01-22 17:47] LABS: ABG BASE EXCESS 2.7 mmol/L (-2.0-2.0); ABG HCO3 27.5 mmol/l (22-26); ABG O2 SATURATION 92.1 % (95-97); ARTERIAL BLOOD GAS PCO2 45.5 mmHg (35-45); ARTERIAL BLOOD GAS PH 7.398 (7.35-7.45); ARTERIAL BLOOD GAS PO2 69.1 mmHg (80-90)
[2018-01-22 17:47] LABS: PLATELET SUFFICIENCY NORMAL (NORMAL); POLYCHROMASIA SLIGHT; TOTAL CELLS COUNTED 100 #CELLS
[2018-01-22 17:48] LABS: OVALOCYTES FEW
[2018-01-23] VITALS: BP 112/46
[2018-01-23 06:59] LABS: HEMATOCRIT 37.4 % (37.0-47.0); HEMOGLOBIN 11.8 g/dl (12.0-16.0); MEAN CELL VOLUME 103.6 fl (81.0-99.0); MEAN CORPUSCULAR HGB 32.7 pg (27.0-31.0); MEAN CORPUSCULAR HGB CONC 31.6 g/dl (33.0-37.0); MEAN PLATELET VOLUME 12.7 fl (9.6-12.3); PLATELET COUNT AUTOMATED 154 10*3/uL (130-400); RED BLOOD COUNT 3.61 10*6/uL (4.10-5.10); RED CELL DISTRI WIDTH 14.9 % (0-14.5); WHITE BLOOD COUNT 12.5 10*3/uL (4.8-10.8)
[2018-01-23 07:23] LABS: CREATININE 7.62 mg/dL (0.55-1.02); PHOSPHOROUS 8.2 mg/dL (2.5-4.9); POTASSIUM 5.2 mmol/L (3.5-5.1)
[2018-01-23 07:30] LABS: PLATELET SUFFICIENCY NORMAL (NORMAL); TOTAL CELLS COUNTED 100 #CELLS
[2018-01-23 08:00] VITALS: BP 148/56
[2018-01-23 12:00] VITALS: BP 135/44
[2018-01-23 16:00] VITALS: BP 153/46
[2018-01-23 20:00] VITALS: BP 156/51
[2018-01-24] VITALS: BP 152/51
[2018-01-24 06:55] LABS: MEAN CELL VOLUME 103.7 fl (81.0-99.0); MEAN CORPUSCULAR HGB 31.9 pg (27.0-31.0); MEAN CORPUSCULAR HGB CONC 30.8 g/dl (33.0-37.0); MEAN PLATELET VOLUME 12.2 fl (9.6-12.3); PLATELET COUNT AUTOMATED 159 10*3/uL (130-400); RED BLOOD COUNT 3.76 10*6/uL (4.10-5.10); RED CELL DISTRI WIDTH 14.7 % (0-14.5); WHITE BLOOD COUNT 7.2 10*3/uL (4.8-10.8)
[2018-01-24 07:23] LABS: PLATELET SUFFICIENCY NORMAL (NORMAL); TOTAL CELLS COUNTED 100 #CELLS
[2018-01-24 07:27] LABS: POTASSIUM 5.6 mmol/L (3.5-5.1)
[2018-01-24 07:29] LABS: CREATININE 8.73 mg/dL (0.55-1.02); PHOSPHOROUS 7.9 mg/dL (2.5-4.9)
[2018-01-24 08:00] VITALS: BP 170/60
[2018-01-24 12:00] VITALS: BP 153/48
[2018-01-24] MEDS ORDERED: IMDUR SA60 M1 PO (13:09)
[2018-01-24] MEDS ORDERED: ASPIRIN ADULT L81 M2 PO (13:09)
[2018-01-24] MEDS ORDERED: CARVEDILOL25 MG PO (13:09)
[2018-01-24 16:00] VITALS: BP 124/39
[2018-01-24 20:00] VITALS: BP 137/56
[2018-01-25] VITALS: BP 110/52
[2018-01-25 07:39] LABS: ALBUMIN 3.5 gm/dl (3.1-4.5); CREATININE 6.31 mg/dL (0.55-1.02); PHOSPHOROUS 5.8 mg/dL (2.5-4.9)
[2018-01-25 07:48] LABS: POTASSIUM 4.3 mmol/L (3.5-5.1)
[2018-01-25 08:00] VITALS: BP 160/58
[2018-01-25 12:00] VITALS: BP 148/49
== END 2018-01-25 14:16 | disposition home or self-care (01) | DRG 280 ==
LOC: ED 06:21 → EDHOLD 07:37 → ICCU 07:37 → 4E 01-22 13:11 → ICCU 01-22 17:14 → 4E 01-22 21:16
PROVIDERS: Internal Medicine; Student in an Organized Health Care Education/Training Program
PROC: 5A1D70Z Performance of Urinary Filtration, Intermittent, Less than 6 Hours Per Day (ICD-10-PCS; principal; 2018-01-21)
PROC: 3E073KZ Introduction of Other Diagnostic Substance into Coronary Artery, Percutaneous Approach (ICD-10-PCS; 2018-01-23)
PROC: 4A02XM4 Measurement of Cardiac Total Activity, External Approach (ICD-10-PCS; 2018-01-23)
DX: I21.4 Non-ST elevation (NSTEMI) myocardial infarction (principal); G93.41 Metabolic encephalopathy; I13.2 Hypertensive heart and chronic kidney disease with heart failure and with stage 5 chronic kidney disease, or end stage renal disease; E83.39 Other disorders of phosphorus metabolism; N18.6 End stage renal disease; I50.42 Chronic combined systolic (congestive) and diastolic (congestive) heart failure; I25.2 Old myocardial infarction; E87.8 Other disorders of electrolyte and fluid balance, not elsewhere classified; E83.41 Hypermagnesemia; I44.7 Left bundle-branch block, unspecified; R74.8 Abnormal levels of other serum enzymes; R73.9 Hyperglycemia, unspecified; F41.9 Anxiety disorder, unspecified; D72.829 Elevated white blood cell count, unspecified; D53.9 Nutritional anemia, unspecified; I34.0 Nonrheumatic mitral (valve) insufficiency; Z87.891 Personal history of nicotine dependence; Z80.1 Family history of malignant neoplasm of trachea, bronchus and lung; Z99.2 Dependence on renal dialysis; Z80.0 Family history of malignant neoplasm of digestive organs; Z88.6 Allergy status to analgesic agent; Z88.0 Allergy status to penicillin; Z88.8 Allergy status to other drugs, medicaments and biological substances; Z79.899 Other long term (current) drug therapy; Z79.82 Long term (current) use of aspirin; Z86.718 Personal history of other venous thrombosis and embolism

== ENCOUNTER 2018-01-25 18:42 | Emergency (ER) | payer MEDICARE, MEDICAID ==
[~2018-01-25] VITALS: Ht 162.5 cm; Wt 61.2 kg
--- NOTE | ~2018-01-25 | EKG ---
[place], [place] ELECTROCARDIOGRAM REPORT NAME: NAGA ROSARIO UNIT #: [id number] ROOM: DOCTOR: EPIPHANY DRAFT REPORT BIRTHDATE: [birth year] [facility] Test Date: 2018-01-25 Test Time: 19:25:35 Pat Name: NAGA ROSARIO Department: Room: Gender: F Densitometrist: EKG.NH : 1945 Requested By: CK OG Order Number: [id number] Reading MD: James Wooten MD Measurements Intervals [place] Rate: 67 P: 60 AR: 229 QRS: 39 QRSD: 184 T: 227 QT: 527 QTc: 557 Interpretive Statements Sinus rhythm Prolonged AR interval Left bundle branch block Compared to ECG 01/24/2018 08:40:07 No significant changes Electronically Signed On 01-26-2018 10:25:08 PDT by James Wooten MD CM:EKGRPT:ELECTROCARDIOGRAM REPORT 24 1025 CK OG MD EPIPHANY DRAFT REPORT CK OG MD
[~2018-01-25 18:42] MED LIST changes: +ASPIRIN ADULT L81 M2 PO; +CARVEDILOL25 MG PO; +CLEOCIN HCL300 MG PO; +IMDUR SA60 M1 PO; +ULTRAM50 MG PO; +VISTARIL25 MG PO
[2018-01-25 19:43] LABS: BASO % 0.3 % (0.0-1.0); EOS # 0.1 10*3/uL (0.0-0.4); EOS % 1.2 % (1.0-4.0); HEMATOCRIT 38.7 % (37.0-47.0); HEMOGLOBIN 12.5 g/dl (12.0-16.0); LYMPH # 0.6 10*3/uL (1.3-4.4); LYMPH % 10.7 % (27.0-41.0); MEAN CORPUSCULAR HGB 32.1 pg (27.0-31.0); MEAN CORPUSCULAR HGB CONC 32.3 g/dl (33.0-37.0); MEAN PLATELET VOLUME 11.5 fl (9.6-12.3); MONO # 0.4 10*3/uL (0.1-1.0); MONO % 7.6 % (3.0-9.0); NEUT # 4.6 10*3/uL (2.3-7.9); NEUT % 79.9 % (47.0-73.0); PLATELET COUNT AUTOMATED 174 10*3/uL (130-400); RED CELL DISTRI WIDTH 14.4 % (0-14.5); WHITE BLOOD COUNT 5.8 10*3/uL (4.8-10.8)
[2018-01-25 19:44] LABS: MEAN CELL VOLUME 99.2 fl (81.0-99.0)
[2018-01-25 19:48] LABS: INTERNATIONAL NORM RATIO 1.1 (2.0-3.5)
[2018-01-25 20:00] LABS: CREATININE 7.6 mg/dL (0.55-1.02); TOTAL PROTEIN 7.4 gm/dL (6.4-8.2)
[2018-01-25 20:02] LABS: TROPONIN I 0.183 ng/ml (<0.045)
== END 2018-01-25 21:18 | disposition short-term general hospital (02) ==
LOC: ED 18:42
PROVIDERS: Emergency Medicine Emergency Medical Services
DX: T82.898A Other specified complication of vascular prosthetic devices, implants and grafts, initial encounter (principal); I13.2 Hypertensive heart and chronic kidney disease with heart failure and with stage 5 chronic kidney disease, or end stage renal disease; N18.6 End stage renal disease; I50.9 Heart failure, unspecified; I25.2 Old myocardial infarction; E78.00 Pure hypercholesterolemia, unspecified; Z87.891 Personal history of nicotine dependence; Z98.890 Other specified postprocedural states; Z99.2 Dependence on renal dialysis; Z79.899 Other long term (current) drug therapy; Z79.82 Long term (current) use of aspirin; Z88.0 Allergy status to penicillin; Z88.5 Allergy status to narcotic agent; Z88.8 Allergy status to other drugs, medicaments and biological substances; Y92.9 Unspecified place or not applicable

== ENCOUNTER 2018-03-13 13:18 | Inpatient (IN) | payer MEDICARE, MEDICAID ==
[~2018-03-13] VITALS: Ht 167.6 cm; Wt 58.3 kg
--- NOTE | ~2018-03-13 | EKG ---
[place], [place] ELECTROCARDIOGRAM REPORT NAME: NAGA ROSARIO UNIT #: [id number] ROOM: 516 DOCTOR: GUME DRAFT REPORT BIRTHDATE: [birth year] [facility] Test Date: 2018-03-13 Test Time: 13:31:08 Pat Name: NAGA ROSARIO Department: Room: 516 Gender: F Home Health Care Case Manager: : 1945 Requested By: SUSAN BURNETTE Order Number: [id number] Reading MD: Josefina Gastelum MD Measurements Intervals [place] Rate: 77 P: 23 NM: 229 QRS: 32 QRSD: 188 T: 223 QT: 514 QTc: 582 Interpretive Statements Sinus rhythm Prolonged NM interval IVCD, consider atypical LBBB Compared to ECG 01/25/2018 19:25:35 No significant changes Electronically Signed On 03-16-2018 9:33:41 PDT by Josefina Gastelum MD CM:EKGRPT:ELECTROCARDIOGRAM REPORT 1331 0933 SUSAN BAPTISTE DRAFT REPORT SUSAN BURNETTE DO
[2018-03-13 13:21] VITALS: BP 155/55
[2018-03-13 14:15] LABS: BASO % 0.6 % (0.0-1.0); EOS # 0.2 10*3/uL (0.0-0.4); EOS % 2.4 % (1.0-4.0); HEMATOCRIT 36.2 % (37.0-47.0); HEMOGLOBIN 11.6 g/dl (12.0-16.0); LYMPH # 0.7 10*3/uL (1.3-4.4); LYMPH % 10.8 % (27.0-41.0); MEAN CELL VOLUME 98.4 fl (81.0-99.0); MEAN CORPUSCULAR HGB 31.5 pg (27.0-31.0); MEAN PLATELET VOLUME 11.7 fl (9.6-12.3); MONO # 0.4 10*3/uL (0.1-1.0); NEUT # 5.1 10*3/uL (2.3-7.9); NEUT % 79.7 % (47.0-73.0); PLATELET COUNT AUTOMATED 183 10*3/uL (130-400); RED BLOOD COUNT 3.68 10*6/uL (4.10-5.10); RED CELL DISTRI WIDTH 14.4 % (0-14.5); WHITE BLOOD COUNT 6.4 10*3/uL (4.8-10.8)
[2018-03-13 14:25] LABS: BILIRUBIN NEGATIVE (NEGATIVE); BLOOD NEGATIVE (NEGATIVE); CLARITY CLEAR (CLEAR); COLOR YELLOW (YELLOW); GLUCOSE TRACE (NEGATIVE); KETONE NEGATIVE (NEGATIVE); LEUKO ESTERASE TRACE (NEGATIVE); NITRITE NEGATIVE (NEGATIVE); SPECIFIC GRAVITY 1.015 (1.005-1.030); UROBILINOGEN 0.2 E.U./dl (0.2-1.0)
[2018-03-13 14:26] LABS: ACT PARTIAL THROMBO TIME 25.5 SECONDS (20.8-31.5); INTERNATIONAL NORM RATIO 1.1 (2.0-3.5)
[2018-03-13 14:32] LABS: ALBUMIN 3.5 gm/dl (3.1-4.5); CREATININE 2.84 mg/dL (0.55-1.02); TOTAL PROTEIN 6.8 gm/dL (6.4-8.2)
[2018-03-13 14:47] LABS: TROPONIN I 0.221 ng/ml (<0.045)
[2018-03-13 15:25] LABS: BACTERIA 1+; EPITHELIAL CELLS 50-60; RBC 0-2 rbc/hpf (0-2)
[2018-03-13] MEDS ORDERED: DURAGESIC1 EACH TD (15:26)
[2018-03-13] MEDS ORDERED: VELPHORO500 M1 PO (15:27)
[2018-03-13] MEDS ORDERED: CARVEDILOL12.5 MG PO (15:29)
[2018-03-13 15:30] VITALS: BP 158/62
[2018-03-13] MEDS ORDERED: RENAL-VITE TAB0.8 MG PO (15:30)
[2018-03-13 16:00] VITALS: BP 168/64
[2018-03-13 16:20] VITALS: BP 154/62
[2018-03-13 17:00] VITALS: BP 168/64
[2018-03-13 20:00] VITALS: BP 154/54
[2018-03-14] VITALS: BP 142/59
[2018-03-14 06:26] LABS: BASO % 0.7 % (0.0-1.0); EOS # 0.1 10*3/uL (0.0-0.4); EOS % 1.8 % (1.0-4.0); HEMATOCRIT 40.3 % (37.0-47.0); HEMOGLOBIN 12.8 g/dl (12.0-16.0); LYMPH # 0.8 10*3/uL (1.3-4.4); LYMPH % 12.5 % (27.0-41.0); MEAN CELL VOLUME 98.8 fl (81.0-99.0); MEAN CORPUSCULAR HGB 31.4 pg (27.0-31.0); MEAN CORPUSCULAR HGB CONC 31.8 g/dl (33.0-37.0); MEAN PLATELET VOLUME 11.8 fl (9.6-12.3); MONO # 0.4 10*3/uL (0.1-1.0); MONO % 5.9 % (3.0-9.0); NEUT # 4.8 10*3/uL (2.3-7.9); NEUT % 78.8 % (47.0-73.0); PLATELET COUNT AUTOMATED 199 10*3/uL (130-400); RED BLOOD COUNT 4.08 10*6/uL (4.10-5.10); RED CELL DISTRI WIDTH 14.5 % (0-14.5); WHITE BLOOD COUNT 6.1 10*3/uL (4.8-10.8)
[2018-03-14 06:52] LABS: ALBUMIN 3.8 gm/dl (3.1-4.5); CREATININE 3.86 mg/dL (0.55-1.02); FREE T4 1.63 ng/dl (0.76-1.46); PHOSPHOROUS 2.9 mg/dL (2.5-4.9); POTASSIUM 3.7 mmol/L (3.5-5.1); TOTAL PROTEIN 7.2 gm/dL (6.4-8.2)
[2018-03-14 06:57] LABS: ACT PARTIAL THROMBO TIME 24.7 SECONDS (20.8-31.5); THYROID STIM HORMONE (HS) 1.36 uIU/ml (0.358-4.75)
[2018-03-14 08:00] VITALS: BP 152/62
[2018-03-14 08:17] LABS: VITAMIN D, 25-HYDROXY 27.2 ng/mL (30-100)
[2018-03-14 12:00] VITALS: BP 153/57
[2018-03-14 16:00] VITALS: BP 151/64
[2018-03-14 20:00] VITALS: BP 156/63
[2018-03-15] VITALS: BP 137/45
[2018-03-15 06:18] LABS: BASO % 0.7 % (0.0-1.0); EOS # 0.1 10*3/uL (0.0-0.4); HEMOGLOBIN 13.1 g/dl (12.0-16.0); LYMPH # 0.7 10*3/uL (1.3-4.4); LYMPH % 11.2 % (27.0-41.0); MEAN CELL VOLUME 98.6 fl (81.0-99.0); MEAN CORPUSCULAR HGB 31.5 pg (27.0-31.0); MEAN PLATELET VOLUME 11.8 fl (9.6-12.3); MONO # 0.3 10*3/uL (0.1-1.0); MONO % 5.6 % (3.0-9.0); NEUT # 4.9 10*3/uL (2.3-7.9); NEUT % 81.2 % (47.0-73.0); PLATELET COUNT AUTOMATED 195 10*3/uL (130-400); RED BLOOD COUNT 4.16 10*6/uL (4.10-5.10); RED CELL DISTRI WIDTH 14.6 % (0-14.5); WHITE BLOOD COUNT 6.1 10*3/uL (4.8-10.8)
[2018-03-15 06:25] LABS: CREATININE 5.14 mg/dL (0.55-1.02)
[2018-03-15 08:00] VITALS: BP 156/78
[2018-03-15 12:00] VITALS: BP 139/51
[2018-03-15 16:00] VITALS: BP 117/50
[2018-03-15 20:00] VITALS: BP 115/53
[2018-03-16] VITALS: BP 125/50
[2018-03-16 07:00] LABS: BASO # 0.1 10*3/uL (0.0-0.1); BASO % 1.4 % (0.0-1.0); EOS # 0.4 10*3/uL (0.0-0.4); EOS % 6.2 % (1.0-4.0); HEMATOCRIT 40.5 % (37.0-47.0); HEMOGLOBIN 12.5 g/dl (12.0-16.0); LYMPH % 17.8 % (27.0-41.0); MEAN CORPUSCULAR HGB 31.2 pg (27.0-31.0); MEAN CORPUSCULAR HGB CONC 30.9 g/dl (33.0-37.0); MEAN PLATELET VOLUME 11.8 fl (9.6-12.3); MONO # 0.5 10*3/uL (0.1-1.0); NEUT # 3.7 10*3/uL (2.3-7.9); NEUT % 65.4 % (47.0-73.0); PLATELET COUNT AUTOMATED 182 10*3/uL (130-400); RED BLOOD COUNT 4.01 10*6/uL (4.10-5.10); RED CELL DISTRI WIDTH 14.5 % (0-14.5); WHITE BLOOD COUNT 5.7 10*3/uL (4.8-10.8)
[2018-03-16 07:15] LABS: CREATININE 4.03 mg/dL (0.55-1.02); POTASSIUM 3.8 mmol/L (3.5-5.1)
[2018-03-16 08:00] VITALS: BP 138/50
== END 2018-03-16 09:24 | disposition other institution (70) | DRG 302 ==
LOC: ED 13:18 → 5E 15:15 → EDHOLD 15:15 → 5E 15:38
PROVIDERS: Emergency Medicine; Family Medicine; Internal Medicine; Nurse Practitioner Family
PROC: 5A1D70Z Performance of Urinary Filtration, Intermittent, Less than 6 Hours Per Day (ICD-10-PCS; principal; 2018-03-15)
DX: I25.119 Atherosclerotic heart disease of native coronary artery with unspecified angina pectoris (principal); N18.6 End stage renal disease; I13.2 Hypertensive heart and chronic kidney disease with heart failure and with stage 5 chronic kidney disease, or end stage renal disease; I50.42 Chronic combined systolic (congestive) and diastolic (congestive) heart failure; R17 Unspecified jaundice; K58.9 Irritable bowel syndrome, unspecified; I25.5 Ischemic cardiomyopathy; D64.9 Anemia, unspecified; E87.6 Hypokalemia; R73.9 Hyperglycemia, unspecified; R74.8 Abnormal levels of other serum enzymes; R80.9 Proteinuria, unspecified; R82.71 Bacteriuria; I44.7 Left bundle-branch block, unspecified; I27.20 Pulmonary hypertension, unspecified; I25.10 Atherosclerotic heart disease of native coronary artery without angina pectoris; Z88.0 Allergy status to penicillin; Z88.8 Allergy status to other drugs, medicaments and biological substances; Z88.5 Allergy status to narcotic agent; Z79.899 Other long term (current) drug therapy; Z87.891 Personal history of nicotine dependence; Z80.1 Family history of malignant neoplasm of trachea, bronchus and lung; Z80.0 Family history of malignant neoplasm of digestive organs; Z82.49 Family history of ischemic heart disease and other diseases of the circulatory system; I25.2 Old myocardial infarction; Z99.2 Dependence on renal dialysis; Z79.82 Long term (current) use of aspirin

== ENCOUNTER 2018-03-31 09:32 | Inpatient (IN) | payer MEDICARE, MEDICAID ==
[~2018-03-31] VITALS: Ht 167.6 cm; Wt 56.8 kg
[2018-03-31] VITALS (7 sets, daily range): BP systolic 126–163; BP diastolic 47–67
--- NOTE | ~2018-03-31 | EKG ---
[place], [place] ELECTROCARDIOGRAM REPORT NAME: NAGA ROSARIO UNIT #: [id number] ROOM: 506 DOCTOR: GUME DRAFT REPORT BIRTHDATE: [birth year] [facility] Test Date: 2018-03-31 Test Time: 10:12:52 Pat Name: NAGA ROSARIO Department: Room: 506 Gender: F B2B Appointment Setter: Salome Gutiérrez : 1945 Requested By: MEL MCFARLAND DNP Order Number: [id number] Reading MD: James Wooten MD Measurements Intervals [place] Rate: 81 P: 74 SC: 208 QRS: 26 QRSD: 176 T: 220 QT: 505 QTc: 587 Interpretive Statements Sinus rhythm Atrial premature complex Left bundle branch block Baseline wander in lead(s) I,II,aVR,V4 Compared to ECG 03/13/2018 13:31:08 Atrial premature complex(es) now present First degree AV block no longer present Electronically Signed On 03-31-2018 18:29:29 PDT by James Wooten MD CM:EKGRPT:ELECTROCARDIOGRAM REPORT 1012 1829 MEL DUNAWAY DRAFT REPORT MEL MCFARLAND DNP
--- NOTE | ~2018-03-31 | CON ---
[place], [place] REPORT OF CONSULTATION NAME: NAGA ROSARIO UNIT #: [id number] ROOM: 506 DOCTOR: PHD EDITH ARRIAGAHERINE BIRTHDATE: [birth year] DOS: 04/01/2018 HISTORY OF PRESENT ILLNESS: The patient is a 72-year-old female referred by the hospitalist with concerns for depression and bereavement. At the present time, the patient is on the 5th floor at [facility]. The patient's in July and her daughter moved in with her afterwards. The patient reports feeling a lot of anger and depression following the of her , which she believes is also affecting her physically as well. Alcohol use was reported as rare. Illegal drug use was denied. The patient is a former smoker, having quit about 40 years ago. PAST MEDICAL HISTORY: Aortic stenosis; coronary artery disease; combined systolic and diastolic heart failure; end-stage renal disease, on dialysis; myocardial infarction; hypertension; irritable bowel syndrome. MEDICATIONS: Nat-Darlin, Coreg, aspirin, Imdur Sa, Zestril, Sensipar, heparin, Protonix, Zofran, Cipro, Restoril, [place] 5/325. The patient was awake, alert and oriented to person. She initially gave the correct location, but self corrected to "[facility]." Affect was restricted in range and mood was depressed. She endorsed a subjective sense of sadness, difficulty sleeping, which she attributes to sleep apnea and poor appetite. She denied anhedonia and hopelessness. She feels helpless at times related to her physical condition. The patient firmly denied suicidal ideation, plan, and intent. She stated that she is angry with her daughter for "telling everyone I want to go off dialysis and kill myself." She emphatically denied a desire for , stating that she had just purchased fabric for quilting and is eager to get started because she wants to finish before [place]. She denied formal mental health treatment, but has received support from her operations examiner. She denied a history of self-harm or suicide attempts. Speech was soft and language appeared within normal limits on a conversational basis. Thought process was goal directed and there is no evidence of hallucinations or delusions. The patient had some difficulty with recent and remote memory and appeared confused at times. Insight and judgment were fair. Discussed the patient's grief and family issues. Utilize CBT and supportive therapy interventions, the patient appeared to benefit. In my opinion, the patient does not appear to be an imminent risk to herself. She firmly denied current suicidal ideation and a desire for . She emphasized that she very much wants to live and does not want to stop dialysis. The patient does not want to receive inpatient treatment due to wanting to go home to work on her quilting. She is very agreeable to counseling. She stated that she is familiar with a location in [place] and would like to follow up there. She could not recall the name, but stated her daughter knows where she is talking about. Attempted to follow up with the patient's daughter, but was unable to reach her. The patient is also open to medications for depression as deemed appropriate. DIAGNOSIS: Major depressive disorder, single episode, severe. [place], [place] REPORT OF CONSULTATION NAME: NAGA ROSARIO UNIT #: [id number] ROOM: [facility] DOCTOR: JESUS, PHD LISA BIRTHDATE: [birth year] RECOMMENDATIONS: Outpatient counseling for depression and bereavement. She would also likely benefit from an evaluation by a psychiatrist to determine the appropriateness of psychiatric medication. Dr. Jimenez has been consulted already. We will follow the patient for counseling as an inpatient as needed. Thank you very much for this consult. Michelle Arriaga, PhD CM:CONSTR:REPORT OF CONSULTATION 1054 04/10/18 0902 interface
[~2018-03-31 09:32] MED LIST changes: +CARVEDILOL12.5 MG PO; +DURAGESIC1 EACH TD; +RENAL-VITE TAB0.8 MG PO; +VELPHORO500 M1 PO
[2018-03-31 10:28] LABS: BASO % 0.6 % (0.0-1.0); EOS % 0.2 % (1.0-4.0); HEMATOCRIT 34.8 % (37.0-47.0); HEMOGLOBIN 11.2 g/dl (12.0-16.0); LYMPH # 0.6 10*3/uL (1.3-4.4); LYMPH % 9.7 % (27.0-41.0); MEAN CELL VOLUME 101.2 fl (81.0-99.0); MEAN CORPUSCULAR HGB 32.6 pg (27.0-31.0); MEAN CORPUSCULAR HGB CONC 32.2 g/dl (33.0-37.0); MEAN PLATELET VOLUME 11.3 fl (9.6-12.3); MONO # 0.4 10*3/uL (0.1-1.0); MONO % 6.4 % (3.0-9.0); NEUT # 5.1 10*3/uL (2.3-7.9); NEUT % 82.6 % (47.0-73.0); PLATELET COUNT AUTOMATED 181 10*3/uL (130-400); RED BLOOD COUNT 3.44 10*6/uL (4.10-5.10); RED CELL DISTRI WIDTH 16.1 % (0-14.5); WHITE BLOOD COUNT 6.2 10*3/uL (4.8-10.8)
[2018-03-31 10:37] LABS: ACT PARTIAL THROMBO TIME 21.7 SECONDS (20.8-31.5); INTERNATIONAL NORM RATIO 1.1 (2.0-3.5)
[2018-03-31 10:44] LABS: BILIRUBIN NEGATIVE (NEGATIVE); BLOOD 3+ (NEGATIVE); CLARITY TURBID (CLEAR); COLOR YELLOW (YELLOW); GLUCOSE NEGATIVE (NEGATIVE); KETONE NEGATIVE (NEGATIVE); PH 8.5 (5.0-9.0); UROBILINOGEN 0.2 E.U./dl (0.2-1.0)
[2018-03-31 10:45] LABS: LEUKO ESTERASE 3+ (NEGATIVE); NITRITE NEGATIVE (NEGATIVE)
[2018-03-31 10:51] LABS: WBC TNTC wbc/hpf (0-5)
[2018-03-31 10:54] LABS: ALBUMIN 3.9 gm/dl (3.1-4.5); CREATININE 4.59 mg/dL (0.55-1.02); POTASSIUM 4.3 mmol/L (3.5-5.1); TOTAL PROTEIN 7.8 gm/dL (6.4-8.2)
[2018-03-31 10:58] LABS: TROPONIN I 0.189 ng/ml (<0.045)
[2018-04-01] VITALS: BP 124/42
[2018-04-01 07:51] LABS: BASO % 0.3 % (0.0-1.0); EOS # 0.4 10*3/uL (0.0-0.4); EOS % 4.8 % (1.0-4.0); HEMATOCRIT 33.1 % (37.0-47.0); HEMOGLOBIN 10.5 g/dl (12.0-16.0); LYMPH # 0.5 10*3/uL (1.3-4.4); LYMPH % 6.8 % (27.0-41.0); MEAN CELL VOLUME 104.1 fl (81.0-99.0); MEAN CORPUSCULAR HGB CONC 31.7 g/dl (33.0-37.0); MEAN PLATELET VOLUME 11.8 fl (9.6-12.3); MONO # 0.4 10*3/uL (0.1-1.0); MONO % 5.5 % (3.0-9.0); NEUT % 82.2 % (47.0-73.0); PLATELET COUNT AUTOMATED 144 10*3/uL (130-400); RED BLOOD COUNT 3.18 10*6/uL (4.10-5.10); RED CELL DISTRI WIDTH 15.9 % (0-14.5); WHITE BLOOD COUNT 7.3 10*3/uL (4.8-10.8)
[2018-04-01 08:04] LABS: ALBUMIN 3.2 gm/dl (3.1-4.5); CREATININE 5.71 mg/dL (0.55-1.02); FREE T4 1.49 ng/dl (0.76-1.46); PHOSPHOROUS 4.9 mg/dL (2.5-4.9); TOTAL PROTEIN 5.9 gm/dL (6.4-8.2)
[2018-04-01 08:09] LABS: THYROID STIM HORMONE (HS) 0.81 uIU/ml (0.358-4.75)
[2018-04-01 08:11] LABS: ACT PARTIAL THROMBO TIME 22.1 SECONDS (20.8-31.5); INTERNATIONAL NORM RATIO 1.1 (2.0-3.5)
[2018-04-01 08:51] VITALS: BP 120/82
[2018-04-01 09:30] LABS: VITAMIN D, 25-HYDROXY 33.4 ng/mL (30-100)
[2018-04-01 16:00] VITALS: BP 118/53
[2018-04-01 20:00] VITALS: BP 109/59
[2018-04-02] VITALS: BP 116/50
[2018-04-02 06:49] LABS: BASO # 0.1 10*3/uL (0.0-0.1); BASO % 0.9 % (0.0-1.0); EOS # 0.9 10*3/uL (0.0-0.4); EOS % 16.8 % (1.0-4.0); HEMATOCRIT 34.5 % (37.0-47.0); HEMOGLOBIN 10.8 g/dl (12.0-16.0); LYMPH # 0.5 10*3/uL (1.3-4.4); LYMPH % 8.7 % (27.0-41.0); MEAN CELL VOLUME 103.6 fl (81.0-99.0); MEAN CORPUSCULAR HGB 32.4 pg (27.0-31.0); MEAN CORPUSCULAR HGB CONC 31.3 g/dl (33.0-37.0); MEAN PLATELET VOLUME 11.9 fl (9.6-12.3); MONO # 0.5 10*3/uL (0.1-1.0); MONO % 8.7 % (3.0-9.0); NEUT # 3.5 10*3/uL (2.3-7.9); NEUT % 64.5 % (47.0-73.0); PLATELET COUNT AUTOMATED 155 10*3/uL (130-400); RED BLOOD COUNT 3.33 10*6/uL (4.10-5.10); RED CELL DISTRI WIDTH 15.9 % (0-14.5); WHITE BLOOD COUNT 5.4 10*3/uL (4.8-10.8)
[2018-04-02 07:09] LABS: ALBUMIN 3.3 gm/dl (3.1-4.5); POTASSIUM 4.2 mmol/L (3.5-5.1)
[2018-04-02 07:12] LABS: CREATININE 4.34 mg/dL (0.55-1.02)
[2018-04-02 08:00] VITALS: BP 144/58
[2018-04-02 12:00] VITALS: BP 115/62
[2018-04-02] MEDS ORDERED: CIPRO500 MG PO (13:49)
== END 2018-04-02 15:52 | disposition home or self-care (01) | DRG 291 ==
LOC: ED 09:32 → 5E 12:34 → EDHOLD 12:34 → 5E 13:22
PROVIDERS: Internal Medicine; Nurse Practitioner Family
PROC: 5A1D70Z Performance of Urinary Filtration, Intermittent, Less than 6 Hours Per Day (ICD-10-PCS; principal; 2018-04-01)
DX: I13.2 Hypertensive heart and chronic kidney disease with heart failure and with stage 5 chronic kidney disease, or end stage renal disease (principal); G93.41 Metabolic encephalopathy; N18.6 End stage renal disease; N39.0 Urinary tract infection, site not specified; I50.42 Chronic combined systolic (congestive) and diastolic (congestive) heart failure; E87.2 Acidosis; F32.2 Major depressive disorder, single episode, severe without psychotic features; K21.9 Gastro-esophageal reflux disease without esophagitis; I25.119 Atherosclerotic heart disease of native coronary artery with unspecified angina pectoris; T78.40XA Allergy, unspecified, initial encounter; X58.XXXA Exposure to other specified factors, initial encounter; F41.9 Anxiety disorder, unspecified; M89.9 Disorder of bone, unspecified; B96.20 Unspecified Escherichia coli [E. coli] as the cause of diseases classified elsewhere; I35.0 Nonrheumatic aortic (valve) stenosis; E83.52 Hypercalcemia; D53.9 Nutritional anemia, unspecified; I73.9 Peripheral vascular disease, unspecified; K58.0 Irritable bowel syndrome with diarrhea; R73.9 Hyperglycemia, unspecified; E83.41 Hypermagnesemia; E80.6 Other disorders of bilirubin metabolism; Z87.891 Personal history of nicotine dependence; I25.2 Old myocardial infarction; Z79.899 Other long term (current) drug therapy; Z88.0 Allergy status to penicillin; Z88.5 Allergy status to narcotic agent; Z88.8 Allergy status to other drugs, medicaments and biological substances; Z80.1 Family history of malignant neoplasm of trachea, bronchus and lung; Z80.0 Family history of malignant neoplasm of digestive organs; Z82.49 Family history of ischemic heart disease and other diseases of the circulatory system

== ENCOUNTER 2018-05-29 17:34 | Inpatient (IN) | payer MEDICARE, MEDICAID ==
[~2018-05-29] VITALS: Ht 162.5 cm; Wt 53.3 kg
--- NOTE | ~2018-05-29 | EKG ---
[place], [place] ELECTROCARDIOGRAM REPORT NAME: NAGA ROSARIO UNIT #: [id number] ROOM: 406 DOCTOR: GUME DRAFT REPORT BIRTHDATE: [birth year] [facility] Test Date: 2018-06-02 Test Time: 23:39:20 Pat Name: NAGA ROSARIO Department: Room: [facility] 2 Gender: F Palliative Care Physician: Bianca Rapp : 1945 Requested By: SANTHOSH WHALEN Order Number: [id number] Reading MD: Santhosh Whalen MD Measurements Intervals [place] Rate: 52 P: 69 ND: 251 QRS: 29 QRSD: 191 T: 216 QT: 540 QTc: 503 Interpretive Statements Sinus rhythm Prolonged ND interval Left bundle branch block Baseline wander in lead(s) V4 Compared to ECG 05/29/2018 23:52:22 No significant changes Electronically Signed On 06-02-2018 21:36:08 PST by Santhosh Whalen MD CM:EKGRPT:ELECTROCARDIOGRAM REPORT 35 SANTHOSH DUNAWAY DRAFT REPORT SANTHOSH WHALEN MD
--- NOTE | ~2018-05-29 | PR ---
[place], [place] PROGRESS NOTE [id number] UNIT #: [id number] ROOM: 406 DOCTOR: SANTHOSH WHALEN MD BIRTHDATE: [birth year] DOS: 06/01/2018 CARDIOLOGY PROGRESS NOTE SUBJECTIVE: The patient was seen at her bedside in the dialysis unit today, 06/01/2018. She was receiving a dialysis treatment. I was evaluating her for bradycardia and a history of cardiomyopathy. She was admitted at this time with weakness and bradycardia. Her recent history has been quite complicated, but she is a very poor historian and has taken some time to piece it altogether. She does have a history of a nonischemic cardiomyopathy. Catheterization on 03/16/[address] [facility] in [place] showed mild calcific LAD stenosis, but no high-grade disease. An echocardiogram from December 2017 showed an ejection fraction of 40%. She also has severe peripheral vascular disease with chronic leg pain. She was evaluated by vascular surgeon at the [facility] who did angiography, which demonstrated bilateral femoral and distal vessel stenoses.. She underwent angiography and percutaneous intervention on the left common iliac artery with good result on April 30. She then underwent angiography and percutaneous intervention on her right femoral artery with atherectomy and angioplasty of the right popliteal, right tibioperoneal and right peroneal arteries on 05/05/2018. She was brought back for an attempt at third revascularization on 05/14/2018. The target was her left superficial femoral artery. The procedure was complicated by severe hypotension. The patient did not suffer a cardiac arrest, but she did require intubation and resuscitation. The procedure was not completed. A subsequent echocardiogram showed left atrial enlargement with left ventricular global hypokinesis. Estimated ejection fraction was between 25 and 30%. This was associated with moderate to severe mitral insufficiency and mild aortic insufficiency with mild aortic stenosis. I do not have all the details, but after this, she was placed on amiodarone and was given a LifeVest for outpatient monitoring. The vest has never discharged. She was sent home on multiple medications including carvedilol, amiodarone and diltiazem. The combination of medications probably resulted in her bradycardia. Today, she feels well and denies lightheadedness or syncope. She denies orthopnea or PND. PHYSICAL EXAMINATION: VITAL SIGNS: On exam, her pulse is 62 and regular, blood pressure is 159/63. She is afebrile. She weighs 53.3 kg and has a body mass index of 20.2. NECK: Supple. She has no jugular distention. Carotids are full. LUNGS: Respirations are unlabored. Her chest is clear anteriorly and laterally. HEART: Her heart has a regular rhythm with an S4 gallop. I did not hear an S3. ABDOMEN: Soft and normally active. EXTREMITIES: Showed no edema. IMPRESSION: 1. Bradycardia, most likely due to medications. On admission, the patient was on carvedilol, amiodarone and diltiazem. The dose of carvedilol and amiodarone [place], [place] PROGRESS NOTE NAME: NAGA ROSARIO UNIT #: [id number] ROOM: [facility] DOCTOR: SANTHOSH WHALEN MD BIRTHDATE: [birth year] were decreased and diltiazem was discontinued. Her heart rate and vital signs have been satisfactory during this hospitalization. 2. Dilated, nonischemic cardiomyopathy. Cardiac catheterization in February 2018 showed no significant coronary occlusive disease. 3. Severe peripheral vascular disease. The patient had angiography and percutaneous interventions as described above. The procedure done on 05/14/2018 was complicated by hypotension requiring intubation and resuscitation. The revascularization of her left lower extremity was never completed. 4. End-stage renal disease, on dialysis. 5. LifeVest prescription in force. PLAN: We will continue to treat her with guideline directed medical therapies as tolerated. We will avoid high dose beta blockers because of her bradycardia. Once she is discharged, she should resume wearing her LifeVest. She can decide whether she would like to follow up with the flat grinder operator at [facility] or with [facility] at the time of her discharge. I thank the hospitalist physicians for asking our advice regarding her care. SANTHOSH WHALEN MD CM:PNTRANS [id number] SANTHOSH WHALEN MD 06/02/18 0412 interface
--- NOTE | ~2018-05-29 | CON ---
[place], [place] REPORT OF CONSULTATION NAME: NAGA ROSARIO UNIT #: [id number] ROOM: 406 DOCTOR: SANTHOSH WHALEN MD BIRTHDATE: [birth year] DOS: 05/30/2018 REASON FOR CONSULTATION: Bradycardia, history of cardiomyopathy. HISTORY OF PRESENT ILLNESS: The patient is a 72-year-old woman who is a very poor historian. Much of the history is obtained from old records. She was hospitalized at the [facility] in 02/2018 when she presented with chest pain. She had a history of hypertension, left bundle branch block, mitral insufficiency, left ventricular dysfunction and an abnormal stress test with a fixed inferior defect and reversible anterior defect. At that point, she was transferred to the [facility] in [place] where catheterization on 03/16/2018 showed mild calcific LAD stenosis, but no other disease. It was felt that she should be treated medically. Her most recent echocardiogram available to me at present was done 01/22/2018 at which time she had an ejection fraction of 40%. The patient does have end-stage renal disease and significant peripheral vascular disease. She reports that she did undergo angiography of her lower extremities at the [facility] in [place]. As best I can tell, she had a complication with cardiac arrest during the procedure. Since then, she has been on amiodarone and has worn a LifeVest. Unfortunately, those details are not currently available to me. PAST MEDICAL HISTORY: Includes: 1. Chronic congestive heart failure due to dilated nonischemic cardiomyopathy. 2. Chronic renal insufficiency. The patient is in end-stage renal failure and is on chronic dialysis. 3. History of valvular heart disease. 4. History of essential hypertension with a remote hypertensive emergency. 5. History of former cigarette use. The patient does admit to social alcohol use. She was brought into the hospital on this occasion because she was noted to be weak and bradycardic at dialysis. Her heart rate on admission was 45, but subsequently has increased to the 60s. PAST HISTORY: Includes peripheral vascular disease and end-stage renal disease along with a dilated nonischemic cardiomyopathy as detailed above. FAMILY HISTORY: The patient's mother of lung cancer in her 50s. Her father at age 89 of "natural causes." A brother of colon cancer in his 40s, son reportedly had hypertrophic obstructive cardiomyopathy and end-stage renal disease. MEDICATIONS: Prior to admission, amiodarone 200 mg daily, aspirin 81 mg daily, atorvastatin 40 mg daily, calcium acetate 2 capsules a.c. t.i.d. with meals, carvedilol 12.5 mg b.i.d., Sensipar 30 mg tablets 2 tablets Mondays, Wednesdays and Fridays, ciprofloxacin 500 mg daily, docusate 100 mg b.i.d., folic acid with B complex daily, lisinopril 20 mg daily, omeprazole 20 mg daily, polyethylene glycol daily, Velphoro 500 mg a.c., fentanyl patch 12 mcg per hour changed every [place], [place] REPORT OF CONSULTATION NAME: NAGA ROSARIO UNIT #: [id number] ROOM: [facility] DOCTOR: SANTHOSH WHALEN MD BIRTHDATE: [birth year] 72 hours, isosorbide mononitrate 60 mg daily and diltiazem 60 mg q.i.d. ALLERGIES: The patient lists allergies to PENICILLIN, ROCEPHIN, CLONIDINE, METOPROLOL, AND MORPHINE. REVIEW OF SYSTEMS: The patient denies diplopia, loss of vision. She denies syncope. She does have some lightheadedness and has been feeling weak lately. She denies nausea or vomiting. She denies fevers, chills, sweats or recent weight change. She denies orthopnea or PND. She denies bleeding from her mouth or nose. She denies hemoptysis or hematemesis. She denies blood in her stools or urine. She denies change in bowel or bladder habits. She denies any skin rashes. She denies heat or cold intolerance. She denies peripheral edema. She does note that she has nonhealing ulcers on her feet and poor circulation to her feet. The remainder of the review of systems is negative except as noted above. SOCIAL HISTORY: The patient has a history of cigarette abuse, but has been abstinent. She does drink alcohol socially. PHYSICAL EXAMINATION: GENERAL: The patient is a slender, elderly white female who is awake, alert and oriented. VITAL SIGNS: Pulse is 63, blood pressure is 160/42. She is afebrile. She weighs 53.3 kg and has a body mass index of 20.2. HEENT: Normocephalic and atraumatic. Extraocular muscles are intact. Sclerae are clear. Pupils equal, round and react to light. The oral mucosa is moist. Tongue is midline. NECK: Supple. She has no jugular distention. Carotids are full. I heard no bruits. She had no neck or supraclavicular masses and no thyromegaly. LUNGS: Respirations are unlabored. Her chest has decreased breath sounds at the bases, but no wheezes or rales. She has no presacral edema or chest wall tenderness. CARDIOVASCULAR: Her heart has a regular rhythm with an S4 gallop. I did not hear an S3. The PMI was not displaced. There is no precordial heave, lift or thrill. ABDOMEN: Soft and normally active without masses, organomegaly or bruits. EXTREMITIES: Showed no edema. Peripheral pulses are absent in the feet. She does have ulcerations on her toes with a black base consistent with a localized gangrene. LABORATORY DATA: Electrocardiogram shows sinus bradycardia with a heart rate of 51 and a first degree AV block with a left bundle branch block. Chest x-ray 05/29/2018 showed no acute pulmonary pathology. LABORATORY STUDIES: Hemoglobin 10.8, white count 5700, platelet count 220,000. Sodium 139, potassium 4.3, BUN 13, creatinine 3.16 (immediately after dialysis). Troponin levels are mildly elevated, but do not show a pattern suggesting an acute coronary syndrome. Peak troponin level is 0.181. IMPRESSIONS: [place], [place] REPORT OF CONSULTATION NAME: NAGA ROSARIO UNIT #: [id number] ROOM: [facility] DOCTOR: SANTHOSH WHALEN MD BIRTHDATE: [birth year] 1. Bradycardia, most likely due to medications. The patient was on carvedilol, amiodarone and diltiazem prior to admission. 2. Dilated nonischemic cardiomyopathy. Cardiac catheterization in 02/2018 did not show any significant coronary occlusive disease. 3. Peripheral vascular disease. The patient reports a recent angioplasty, which may have been complicated by cardiac arrest. 4. End-stage renal disease. 5. The patient is wearing LifeVest which appears to have been applied during a recent hospitalization at the [facility] where she may have had a cardiac arrest during a peripheral vascular procedure. PLAN: For now, we will resume her amiodarone and a lower dose of her carvedilol, but withhold diltiazem and nitrates. We will decrease the dose of her lisinopril for the present time, but increase it if needed for blood pressure control. We will be requesting records from the [facility] to see why she had the LifeVest applied and to determine if her left ventricular systolic function had deteriorated compared to the previous echo which showed ejection fraction of 40%. No other cardiac workup is planned till I have a chance to review her [facility] records. We will continue to monitor her vital signs closely. I thank the hospitalist physicians for asking our advice regarding her care. SANTHOSH WHALEN MD CM:CONSTR:REPORT OF CONSULTATION 1545 06/02/18 0648 interface
--- NOTE | ~2018-05-29 | EKG ---
[place], [place] ELECTROCARDIOGRAM REPORT NAME: NAGA ROSARIO UNIT #: [id number] ROOM: 406 DOCTOR: GUME DRAFT REPORT BIRTHDATE: [birth year] [facility] Test Date: 2018-05-29 Test Time: 17:56:26 Pat Name: NAGA ROSARIO Department: Room: 406 Gender: F Field Test Engineer: NELIDA : 1945 Requested By: SUSAN BURNETTE Order Number: [id number] Reading MD: James Wooten MD Measurements Intervals [place] Rate: 44 P: 0 [place]: 269 QRS: -3 QRSD: 193 T: 150 QT: 623 QTc: 533 Interpretive Statements Sinus bradycardia Prolonged [place] interval Left bundle branch block Compared to ECG 03/31/2018 10:12:52 First degree AV block now present Sinus rhythm no longer present Atrial premature complex(es) no longer present Electronically Signed On 05-29-2018 19:53:28 PST by James Wooten MD CM:EKGRPT:ELECTROCARDIOGRAM REPORT 55 52 SUSAN BAPTISTE DRAFT REPORT SUSAN BURNETTE DO
--- NOTE | ~2018-05-29 | EKG ---
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
--- NOTE | ~2018-05-29 | PR ---
[place], [place] PROGRESS NOTE NAME[id number] UNIT #: [id number] ROOM: 406 DOCTOR: SANTHOSH WHALEN MD BIRTHDATE: [birth year] DOS: 06/04/2018 CARDIOLOGY PROGRESS NOTE SUBJECTIVE: The patient was seen at her bedside today, 06/04/2018, for followup of her dilated nonischemic cardiomyopathy and bradycardia. Unfortunately, she has been unable to tolerate all rate slowing medications. This has prevented us from having her on guideline directed medical therapy. Within the last few days, I did stop beta blockers and amiodarone but today her resting heart rate remains in the mid to high 50s. While she was on low-dose beta zeke, she was often in the 40s. She feels well today and denies palpitations, lightheadedness, syncope, orthopnea or PND. PHYSICAL EXAMINATION: VITAL SIGNS: Her pulse is 60 and regular, blood pressure is 150/48. She is afebrile. She weighs 53.3 kg and has a body mass index of 20.2. NECK: Supple. She has no jugular distention or hepatojugular reflux. Carotids are full. LUNGS: Respirations are unlabored at rest. Lungs are clear. HEART: Has a regular rhythm. She has an S4 gallop and a soft S3. ABDOMEN: Benign. EXTREMITIES: Showed no edema. IMPRESSION: 1. Dilated, nonischemic cardiomyopathy. 2. Cardiac catheterization, ____2017 showed minimal left anterior descending coronary artery disease without occlusive disease. 3. End-stage renal disease, on dialysis. 4. Sinus bradycardia with left bundle branch block. 5. Recent heart failure with hypotension, complicating peripheral vascular angiographic procedure. 6. History of paroxysmal atrial fibrillation during recent peripheral vascular angiographic procedure. The patient not anticoagulated because of clinical instability and anemia as well as the fact that she is on dialysis. PLAN: Hemodynamically, the patient does appear to be stable at this time. She does have a LifeVest and this should be resumed when she is discharged back to the long term. I would like her to be evaluated by our rural sociologist in the very near future. She would rather not go back to the rural sociologist at [facility]. Given the fact that we are unable to proceed with appropriate guideline directed medical therapy because of her bradycardia, I would like them to consider the early implantation of a biventricular ICD for resynchronization therapy and prevention of sudden cardiac . This can, however, be arranged as an outpatient. In the meantime, we will increase her lisinopril to 20 mg twice a day. She may be discharged to the long term today if okay with others. [place], [place] PROGRESS NOTE NAME: NAGA ROSARIO UNIT #: [id number] ROOM: [facility] DOCTOR: SANTHOSH WHALEN MD BIRTHDATE: [birth year] SANTHOSH WHALEN MD CM:PNTRANS 21 08 SANTHOSH WHALEN MD 06/04/182107 interface
--- NOTE | ~2018-05-29 | EKG ---
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
--- NOTE | ~2018-05-29 | CON ---
[place], [place] REPORT OF CONSULTATION NAME: NAGA ROSARIO UNIT #: [id number] ROOM: 406 DOCTOR: BIA BLOOM DO BIRTHDATE: [birth year] DOS: 05/31/2018 REASON FOR CONSULTATION: End-stage renal disease. HISTORY OF PRESENT ILLNESS: The patient is a pleasant 72-year-old female, vague historian, prior history of hypertension, irritable bowel disease, NSTEMI, previous dilated nonischemic cardiomyopathy. She has mitral valve regurgitation. On recent admission to [facility] in [place], she underwent angiogram of her lower extremities. Full details are unclear, but had a cardiac arrest during that procedure and has required a LifeVest since that point in time. Unfortunately, full details as noted are not clear to me. She also probably has pulmonary hypertension, aortic stenosis, and aortic regurgitation per an echocardiogram performed in 12/2017. Details of this are not available to me. She has end-stage renal disease secondary to hypertension, presumably receiving dialysis every Friday, Friday, and Friday at [facility], last outpatient dialysis occurring on date of admission, which was 05/29/2018. She states in general she tolerated dialysis treatments well without intradialytic hypertension, interdialytic dyspnea or post-hemodialysis fatigue. During her recent dialysis treatment, she was noted to be bradycardic, heart rates in the 30s. She was awake and completely asymptomatic at this time. She was at [facility] and apparently since returning back there from [place], her heart rates have been in the 40s and the 50s, predominantly in the 50s. Following her dialysis treatment, she returned back to [facility] who then brought her to this Emergency Room, though we had requested that she be transported to [place] where she had recently undergone extensive cardiac evaluation. Regardless, on presentation here, she was initially noted to have a heart rate of 45 and then recheck of 50. She was otherwise afebrile, hemodynamically stable. Imagings done in the Emergency Room included a chest x-ray, showed no acute anomalies. Labs performed in the Emergency Room included a CBC, which showed a normal white count, hemoglobin of 10.4. Chemistries were overall unremarkable in the setting of end-stage renal disease, but she was noted to be hypocalcemic with a calcium of 9.8, albumin of 2.9, with corrected calcium of 10.9. Initial troponin was 0.145, which was cycled and remained relatively flat. She was seen by Cardiology, who felt that her bradycardia was most likely a consequence of multiple rate limiting medications. She was using Coreg 12.5 mg b.i.d. prior to this admission, this aside was a longstanding medication for this patient, but she was newly on amiodarone 200 mg daily and diltiazem 60 mg q.i.d. Coreg has since been decreased to 6.25 b.i.d., diltiazem has been stopped, with the patient continuing on amiodarone at the past dosage. Since being admitted, heart rates have been satisfactory. She has been afebrile. Otherwise, hemodynamically stable, with borderline blood pressures in the 160-180 range. She has remained asymptomatic, denying any cardiac symptoms, presyncope, weakness, anorexia, nausea, vomiting, diarrhea, fevers, chills, rigors, diaphoresis, orthopnea, PND, dyspnea or abdominal pain. Her only complaint is that of feeling constipated. PAST MEDICAL HISTORY: See above. ALLERGIES: Listed to PENICILLIN, MORPHINE, METOPROLOL, CODEINE, AND [place], [place] REPORT OF CONSULTATION NAME: NAGA ROSARIO UNIT #: [id number] ROOM: [facility] DOCTOR: BIA BLOOM DO BIRTHDATE: [birth year] [employer]. MEDICATIONS: Lisinopril 10 mg every day; Sensipar 60 mg every Friday, Friday, Friday; Nephrocaps 1 p.o. daily; Duragesic patch 12 mcg q. 72 hours; amiodarone 200 mg daily; carvedilol 6.25 mg b.i.d.; atorvastatin 40 mg daily; aspirin 81 daily; Protonix 40 mg daily; heparin 5000 units subcutaneous q. 12 hours. SOCIAL HISTORY: She resides in a jail. FAMILY HISTORY: Noncontributory. REVIEW OF SYSTEMS: Please see HPI. A full 10 point review of systems was performed and all obtained with above-noted measures, unremarkable except as noted in HPI. PHYSICAL EXAMINATION: VITAL SIGNS: Blood pressure ____/53, pulse 62, respiration 18, temperature is 98.1 degrees Fahrenheit. GENERAL APPEARANCE: An elderly female, awake, alert, oriented x 3, is currently in no apparent distress. HEENT: Conjunctivae are pink and moist. Oral mucosa is pink and moist. NECK: There is no carotid bruit. There is no thyromegaly. There is no adenopathy. JVD could not be appreciated. LUNGS: Clear to auscultation and percussion. CARDIOVASCULAR: Heart is regular with a loud 3/6 holosystolic murmur. ABDOMEN: Soft, positive bowel sounds x 4 without CVA tenderness noted. No rebound, guarding or rigidity noted. No abdominal or flank bruits appreciated. NEUROLOGIC: Grossly nonfocal. EXTREMITIES: No clubbing or cyanosis. There is no edema noted. There is a left upper arm AV fistula with normal thrill and bruit present. There is a tunneled dialysis catheter noted in her IJ. SKIN: Warm and dry. LABORATORY DATA: From today, WBC 6.1, hemoglobin 10.7, hematocrit 34.7, platelets are 273,000. Sodium is 137, potassium 4.3, chloride 96, CO2 of 30, BUN 25, creatinine 4.39, glucose is 76, calcium is 10.8. IMPRESSION: 1. End-stage renal disease, currently volume status is satisfactory. Electrolytes with the exception of elevated calcium are satisfactory. 2. Hypercalcemia. This is longstanding in nature and of unclear etiology. She had previously been maintained on a calcium based phosphorus binder, which has not been reordered here as her phosphorus is only 2.9 yesterday. 3. Hypertension. Blood pressure is currently elevated. It should be noted that her lisinopril was decreased to 10 mg daily from her outpatient dose of 20 mg daily and carvedilol was decreased from 12.5 mg b.i.d. to 6.25 mg b.i.d. These were longstanding medications for her preceding her recent admissions to [place], diltiazem being the new medication along with amiodarone. 4. Bradycardia, this has resolved and is presumably a consequence of the use of [place], [place] REPORT OF CONSULTATION NAME: NAGA ROSARIO UNIT #: [id number] ROOM: 406 DOCTOR: BIA BLOOM DO BIRTHDATE: [birth year] diltiazem in conjunction with carvedilol and amiodarone, diltiazem has since been stopped. 5. Anemia. Hemoglobin and hematocrit are satisfactory. RECOMMENDATIONS: We will plan on routine hemodialysis on 06/01/2018. As she is complaining of constipation, we will order Senokot-S 2 p.o. at bedtime as routine bowel regimen. She does have Dulcolax suppositories ordered on a p.r.n. basis. We will increase lisinopril back to 20 mg every day. When the phosphorus levels allow, we will start her on non-calcium based phosphorus binder with Renvela 800 mg p.o. t.i.d., a.c. Check followup chemistries in the morning along with an ionized calcium to reassess her calcium levels. Await Cardiology followup and plans. Thank you for allowing us to participate in the care of the patient. BIA BLOOM DO CM:CONSTR:REPORT OF CONSULTATION 1909 06/02/18 0101 interface
--- NOTE | ~2018-05-29 | PR ---
[place], [place] PROGRESS NOTE NAME: [id number] UNIT #: [id number] ROOM: 406 DOCTOR: SANTHOSH WHALEN MD BIRTHDATE: [birth year] DOS: 06/03/2018 CARDIOLOGY PROGRESS NOTE SUBJECTIVE: The patient was seen today 06/03/2018 for followup of her bradycardia and dilated nonischemic cardiomyopathy. She tells me that she is feeling reasonably well. Her heart rate unfortunately, remains slow despite the fact that we have stopped all rate slowing medications. She has been on amiodarone and this certainly will linger but nonetheless her bradycardia is limiting her ability to treat her with guideline directed medical therapies for her cardiomyopathy. Last evening, she was noted to have a 9 beat run of wide complex tachycardia. I reviewed the rhythm strips. She had SVT. The morphology of the QRS complexes with the same as she normally has and this was not ventricular in origin. She tolerated dialysis well. PHYSICAL EXAMINATION: VITAL SIGNS: Her pulse is 46 and regular, blood pressure is 124/28. NECK: Supple. She has no jugular distention. Carotids are full. LUNGS: Respirations are unlabored. Her chest is clear. HEART: Has a regular rhythm. She has a fourth heart sound and a soft third heart sound. ABDOMEN: Benign. EXTREMITIES: Showed no edema. IMPRESSION: 1. Bradycardia. I thought that this was due to medication. Since on admission, she was on diltiazem, amiodarone and carvedilol; however, stopping the diltiazem and carvedilol if not yet resulted in a normal increase in heart rate. It may be that she does have a sick sinus syndrome causing significant bradycardia. Unfortunately, this does limit our ability to treat her with guideline directed therapies. 2. Dilated nonischemic cardiomyopathy. Cardiac catheterization, February 2018, showed no significant coronary occlusive disease. 3. Severe peripheral vascular disease. The patient did have percutaneous interventions as noted previously. The procedure done on 05/14/2018 was complicated by hypotension and required intubation and resuscitation. She was also noted to have paroxysmal atrial fibrillation after that, but was not anticoagulated because of her other medical problems and anemia. 4. End-stage renal disease, on dialysis. 5. LifeVest prescription is in force. PLAN: We will continue her lisinopril for now. As noted, beta blockers are on hold. She probably could be discharged to her correction for rehab in the near future and should use her LifeVest when she gets there. She has asked that a [place] rubbing bed operator take over her management. I will refer her to one of our rubbing bed operator to assess her indications for device therapy. Given her persistent bradycardia, recent atrial fibrillation, tachy-elyssa [place], [place] PROGRESS NOTE NAME: NAGA ROSARIO UNIT #: [id number] ROOM: [facility] DOCTOR: SANTHOSH WHALEN MD BIRTHDATE: [birth year] findings, etc., in the face of a dilated, nonischemic cardiomyopathy, I think that her prognosis and symptoms would be improved by insertion of a biventricular, cardiac resynchronization ICD. I thank the hospitalist physicians for asking our advice regarding her care. SANTHOSH WHALEN MD CM:PNTRANS [phone] SANTHOSH WHALEN MD 06/04/18209 interface
--- NOTE | ~2018-05-29 | PR ---
[place], [place] PROGRESS NOTE NAME: [id number] UNIT #: [id number] ROOM: 406 DOCTOR: SANTHOSH WHALEN MD BIRTHDATE: [birth year] DOS: 05/31/2018 CARDIOLOGY PROGRESS NOTE SUBJECTIVE: The patient was seen at her bedside today, 05/31/2018, for followup of bradycardia and history of cardiomyopathy. As noted on admission, she does have a history of left ventricular dysfunction. She recently presented to [facility] with chest pain and was transferred to the [facility] where she did undergo cardiac catheterization on 03/16/2018. This showed mild calcific LAD stenosis, but no other disease and it was felt that she was best treated medically. An echocardiogram in December 2017 showed an ejection fraction of 40%. The patient does have a history of severe peripheral vascular disease with leg pain. She was recently evaluated at the [facility] where angiography did show bilateral stenosis of her femoral and distal vessels. She did undergo angiography and percutaneous intervention on her left common iliac artery with good result on 04/30/2018. She then underwent angiography and percutaneous intervention on her right femoral artery with atherectomy and angioplasty of the right popliteal artery, right tibioperoneal trunk and right peroneal artery on 05/05/2018. She was brought back a third time on 05/14/2018 for an attempt of angioplasty on the left superficial femoral artery. This procedure; however, was complicated by severe hypotension. The patient did not rest, but she did require intubation and resuscitation. She was subsequently evaluated with an echocardiogram, which showed a large left atrium and global hypokinesis of the left ventricle with an estimated ejection fraction between 25 and 30%. This was associated with moderate to severe mitral insufficiency with mild aortic insufficiency and mild aortic stenosis. I do not have all of the details, but apparently after that she was started on amiodarone and given a LifeVest. As noted, she was hospitalized on this occasion because of bradycardia and generalized weakness. This is improving with adjustment of her medications. PHYSICAL EXAMINATION: VITAL SIGNS: Today her pulse is 62 and regular, blood pressure has increased and is now 180/52. She is afebrile. She weighs 53.3 kg and has a body mass index of 20.2. HEENT: Normocephalic and atraumatic. Extraocular muscles are intact. Sclerae are clear. Pupils are round and react to light. The oral mucosa is moist. Tongue is midline. NECK: Supple. She has no jugular distention or hepatojugular reflux. Carotids are full. LUNGS: Respirations are unlabored. Her chest is clear. HEART: Has a regular rhythm with an S4 gallop. There is no S3. ABDOMEN: Soft and normally active. EXTREMITIES: Showed no edema. IMPRESSION: 1. Bradycardia, most likely due to medications. The patient was on carvedilol, [place], [place] PROGRESS NOTE NAME: NAGA ROSARIO UNIT #: [id number] ROOM: 406 DOCTOR: SANTHOSH WHALEN MD BIRTHDATE: [birth year] amiodarone and diltiazem prior to admission. This is improving with discontinuation of diltiazem and decreasing the dose of her carvedilol. 2. Dilated nonischemic cardiomyopathy. Cardiac catheterization in February 2018 did not show any significant coronary occlusive disease. 3. Peripheral vascular disease. The patient had peripheral angiography and percutaneous interventions as described above. The most recent of these episodes occurred on 05/14/2018 and was complicated by hypotension, requiring intubation and resuscitation. 4. End-stage renal disease, on dialysis. 5. Nonischemic cardiomyopathy, with LifeVest prescribed. PLAN: I will increase her lisinopril and continue to treat her with guideline directed medical therapies as tolerated. We will avoid high dose beta blockers because of her recent bradycardic event. We thank the hospitalist physicians for asking our advice regarding her care. SANTHOSH WHALEN MD CM:PNTRANS 15 25 SANTHOSH WHALEN MD 05/31/182125 interface
[~2018-05-29 17:34] MED LIST changes: +CIPRO500 MG PO
[2018-05-29 17:47] VITALS: BP 157/35
[2018-05-29] MEDS ORDERED: COLACE100 MG PO (18:14)
[2018-05-29] MEDS ORDERED: LIPITOR40 MG PO (18:14)
[2018-05-29] MEDS ORDERED: MIRALAX17 GM PO (18:15)
[2018-05-29] MEDS ORDERED: VELPHORO500 M1 PO (18:15)
[2018-05-29] MEDS ORDERED: AMIODARONE HYD200 MG PO (18:20)
[2018-05-29] MEDS ORDERED: DILTIAZEM60 MG PO (18:22)
[2018-05-29] MEDS ORDERED: OMEPRAZOLE D/R20 MG PO (18:23)
[2018-05-29 18:56] VITALS: BP 138/85
[2018-05-29 19:00] LABS: BASO % 0.6 % (0.0-1.0); EOS # 0.5 10*3/uL (0.0-0.4); EOS % 7.5 % (1.0-4.0); HEMOGLOBIN 10.4 g/dl (12.0-16.0); LYMPH # 0.6 10*3/uL (1.3-4.4); LYMPH % 10.1 % (27.0-41.0); MEAN CELL VOLUME 97.1 fl (81.0-99.0); MEAN CORPUSCULAR HGB 29.7 pg (27.0-31.0); MEAN CORPUSCULAR HGB CONC 30.6 g/dl (33.0-37.0); MEAN PLATELET VOLUME 10.9 fl (9.6-12.3); MONO # 0.5 10*3/uL (0.1-1.0); MONO % 8.5 % (3.0-9.0); NEUT # 4.6 10*3/uL (2.3-7.9); NEUT % 72.7 % (47.0-73.0); PLATELET COUNT AUTOMATED 230 10*3/uL (130-400); RED CELL DISTRI WIDTH 16.4 % (0-14.5); WHITE BLOOD COUNT 6.4 10*3/uL (4.8-10.8)
[2018-05-29 19:11] LABS: ACT PARTIAL THROMBO TIME 22.4 SECONDS (20.8-31.5)
[2018-05-29 19:17] LABS: ALBUMIN 2.9 gm/dl (3.1-4.5); CREATININE 2.52 mg/dL (0.55-1.02); POTASSIUM 4.1 mmol/L (3.5-5.1); TOTAL PROTEIN 6.6 gm/dL (6.4-8.2)
[2018-05-29 19:23] LABS: TROPONIN I 0.145 ng/ml (<0.045)
[2018-05-29 20:50] VITALS: BP 158/48
[2018-05-30] VITALS: BP 150/40
[2018-05-30 05:58] LABS: ALBUMIN 3.1 gm/dl (3.1-4.5); CREATININE 3.16 mg/dL (0.55-1.02); PHOSPHOROUS 2.9 mg/dL (2.5-4.9); POTASSIUM 4.3 mmol/L (3.5-5.1); TOTAL PROTEIN 6.6 gm/dL (6.4-8.2)
[2018-05-30 06:00] LABS: BASO # 0.1 10*3/uL (0.0-0.1); BASO % 1.4 % (0.0-1.0); EOS # 0.6 10*3/uL (0.0-0.4); EOS % 10.6 % (1.0-4.0); HEMATOCRIT 35.9 % (37.0-47.0); HEMOGLOBIN 10.8 g/dl (12.0-16.0); LYMPH # 0.7 10*3/uL (1.3-4.4); LYMPH % 11.9 % (27.0-41.0); MEAN CELL VOLUME 98.6 fl (81.0-99.0); MEAN CORPUSCULAR HGB 29.7 pg (27.0-31.0); MEAN CORPUSCULAR HGB CONC 30.1 g/dl (33.0-37.0); MEAN PLATELET VOLUME 11.2 fl (9.6-12.3); MONO # 0.5 10*3/uL (0.1-1.0); MONO % 8.4 % (3.0-9.0); NEUT # 3.8 10*3/uL (2.3-7.9); PLATELET COUNT AUTOMATED 220 10*3/uL (130-400); RED BLOOD COUNT 3.64 10*6/uL (4.10-5.10); RED CELL DISTRI WIDTH 16.3 % (0-14.5); WHITE BLOOD COUNT 5.7 10*3/uL (4.8-10.8)
[2018-05-30 06:03] LABS: TROPONIN I 0.181 ng/ml (<0.045)
[2018-05-30 06:04] LABS: FREE T4 1.59 ng/dl (0.76-1.46); THYROID STIM HORMONE (HS) 1.49 uIU/ml (0.358-4.75)
[2018-05-30 08:00] VITALS: BP 160/50
[2018-05-30 11:41] VITALS: BP 160/42
[2018-05-30 16:00] VITALS: BP 170/40
[2018-05-30 20:00] VITALS: BP 168/44
[2018-05-31] VITALS: BP 178/42
[2018-05-31 06:02] LABS: BASO # 0.1 10*3/uL (0.0-0.1); EOS # 0.5 10*3/uL (0.0-0.4); EOS % 8.3 % (1.0-4.0); HEMATOCRIT 34.7 % (37.0-47.0); HEMOGLOBIN 10.6 g/dl (12.0-16.0); LYMPH # 0.7 10*3/uL (1.3-4.4); LYMPH % 11.7 % (27.0-41.0); MEAN CELL VOLUME 97.5 fl (81.0-99.0); MEAN CORPUSCULAR HGB 29.8 pg (27.0-31.0); MEAN CORPUSCULAR HGB CONC 30.5 g/dl (33.0-37.0); MEAN PLATELET VOLUME 11.2 fl (9.6-12.3); MONO # 0.5 10*3/uL (0.1-1.0); MONO % 8.2 % (3.0-9.0); NEUT # 4.3 10*3/uL (2.3-7.9); NEUT % 70.3 % (47.0-73.0); PLATELET COUNT AUTOMATED 233 10*3/uL (130-400); RED BLOOD COUNT 3.56 10*6/uL (4.10-5.10); RED CELL DISTRI WIDTH 16.2 % (0-14.5); WHITE BLOOD COUNT 6.1 10*3/uL (4.8-10.8)
[2018-05-31 06:18] LABS: CREATININE 4.39 mg/dL (0.55-1.02); POTASSIUM 4.3 mmol/L (3.5-5.1)
[2018-05-31 08:00] VITALS: BP 180/64
[2018-05-31 12:00] VITALS: BP 179/47
[2018-05-31 16:00] VITALS: BP 180/52
[2018-05-31 20:00] VITALS: BP 169/42
[2018-06-01] VITALS: BP 159/63
[2018-06-01 05:56] LABS: CREATININE 5.61 mg/dL (0.55-1.02); PHOSPHOROUS 3.6 mg/dL (2.5-4.9); POTASSIUM 4.8 mmol/L (3.5-5.1)
[2018-06-01 12:00] VITALS: BP 164/41
[2018-06-01 16:00] VITALS: BP 167/47
[2018-06-01 20:00] VITALS: BP 150/60
[2018-06-02] VITALS: BP 149/43
[2018-06-02 06:37] LABS: EOS # 0.4 10*3/uL (0.0-0.4); EOS % 10.8 % (1.0-4.0); HEMATOCRIT 38.1 % (37.0-47.0); HEMOGLOBIN 11.9 g/dl (12.0-16.0); LYMPH # 0.6 10*3/uL (1.3-4.4); LYMPH % 15.2 % (27.0-41.0); MEAN CELL VOLUME 96.5 fl (81.0-99.0); MEAN CORPUSCULAR HGB 30.1 pg (27.0-31.0); MEAN CORPUSCULAR HGB CONC 31.2 g/dl (33.0-37.0); MEAN PLATELET VOLUME 11.2 fl (9.6-12.3); MONO # 0.5 10*3/uL (0.1-1.0); MONO % 13.2 % (3.0-9.0); NEUT # 2.4 10*3/uL (2.3-7.9); NEUT % 59.3 % (47.0-73.0); PLATELET COUNT AUTOMATED 199 10*3/uL (130-400); RED BLOOD COUNT 3.95 10*6/uL (4.10-5.10); RED CELL DISTRI WIDTH 16.6 % (0-14.5); WHITE BLOOD COUNT 4.1 10*3/uL (4.8-10.8)
[2018-06-02 07:08] LABS: ALBUMIN 2.8 gm/dl (3.1-4.5); POTASSIUM 4.5 mmol/L (3.5-5.1)
[2018-06-02 07:11] LABS: CREATININE 4.56 mg/dL (0.55-1.02); TOTAL PROTEIN 6.1 gm/dL (6.4-8.2)
[2018-06-02 08:00] VITALS: BP 159/38
[2018-06-02 12:00] VITALS: BP 139/33
[2018-06-02 16:00] VITALS: BP 139/55
[2018-06-02 20:00] VITALS: BP 158/67
[2018-06-03] VITALS: BP 165/46
[2018-06-03 00:21] LABS: ALBUMIN 2.9 gm/dl (3.1-4.5); CREATININE 5.39 mg/dL (0.55-1.02); POTASSIUM 4.2 mmol/L (3.5-5.1); TOTAL PROTEIN 5.9 gm/dL (6.4-8.2)
[2018-06-03 06:41] LABS: BASO % 0.8 % (0.0-1.0); EOS # 0.7 10*3/uL (0.0-0.4); EOS % 13.2 % (1.0-4.0); HEMATOCRIT 35.2 % (37.0-47.0); HEMOGLOBIN 10.8 g/dl (12.0-16.0); LYMPH # 0.7 10*3/uL (1.3-4.4); LYMPH % 14.2 % (27.0-41.0); MEAN CELL VOLUME 96.7 fl (81.0-99.0); MEAN CORPUSCULAR HGB 29.7 pg (27.0-31.0); MEAN CORPUSCULAR HGB CONC 30.7 g/dl (33.0-37.0); MEAN PLATELET VOLUME 11.6 fl (9.6-12.3); MONO # 0.6 10*3/uL (0.1-1.0); MONO % 11.4 % (3.0-9.0); PLATELET COUNT AUTOMATED 182 10*3/uL (130-400); RED BLOOD COUNT 3.64 10*6/uL (4.10-5.10); RED CELL DISTRI WIDTH 16.3 % (0-14.5); WHITE BLOOD COUNT 4.9 10*3/uL (4.8-10.8)
[2018-06-03 06:51] LABS: ALBUMIN 2.7 gm/dl (3.1-4.5); CREATININE 5.76 mg/dL (0.55-1.02); POTASSIUM 4.1 mmol/L (3.5-5.1); TOTAL PROTEIN 5.8 gm/dL (6.4-8.2)
[2018-06-03 13:38] VITALS: BP 124/28
[2018-06-03 16:00] VITALS: BP 140/38
[2018-06-03 20:00] VITALS: BP 157/38
[2018-06-04] VITALS: BP 140/54
[2018-06-04 07:13] LABS: ALBUMIN 3.1 gm/dl (3.1-4.5); CREATININE 4.12 mg/dL (0.55-1.02)
[2018-06-04 07:14] LABS: PHOSPHOROUS 4.1 mg/dL (2.5-4.9)
[2018-06-04 08:00] VITALS: BP 150/48
[2018-06-04 12:00] VITALS: BP 150/59
[2018-06-04] MEDS ORDERED: CARVEDILOL6.25 MG PO (14:36)
[2018-06-04] MEDS ORDERED: DURAGESIC1 EACH TD ×2 (14:36→15:07)
== END 2018-06-04 15:59 | disposition other institution (70) | DRG 308 ==
LOC: ED 17:34 → 4E 19:39 → EDHOLD 19:39 → 4E 19:52
PROVIDERS: Emergency Medicine; Family Medicine; Internal Medicine; Internal Medicine Cardiovascular Disease
PROC: 5A09357 Assistance with Respiratory Ventilation, Less than 24 Consecutive Hours, Continuous Positive Airway Pressure (ICD-10-PCS; principal; 2018-05-31)
PROC: 5A1D70Z Performance of Urinary Filtration, Intermittent, Less than 6 Hours Per Day (ICD-10-PCS; 2018-06-01)
PROC: 5A09357 Assistance with Respiratory Ventilation, Less than 24 Consecutive Hours, Continuous Positive Airway Pressure (ICD-10-PCS; 2018-06-03)
PROC: 5A1D70Z Performance of Urinary Filtration, Intermittent, Less than 6 Hours Per Day (ICD-10-PCS; 2018-06-03)
PROC: 5A09357 Assistance with Respiratory Ventilation, Less than 24 Consecutive Hours, Continuous Positive Airway Pressure (ICD-10-PCS; 2018-06-04)
DX: R00.1 Bradycardia, unspecified (principal); N18.6 End stage renal disease; E44.0 Moderate protein-calorie malnutrition; I50.42 Chronic combined systolic (congestive) and diastolic (congestive) heart failure; I13.2 Hypertensive heart and chronic kidney disease with heart failure and with stage 5 chronic kidney disease, or end stage renal disease; F41.9 Anxiety disorder, unspecified; I25.10 Atherosclerotic heart disease of native coronary artery without angina pectoris; K21.9 Gastro-esophageal reflux disease without esophagitis; K58.9 Irritable bowel syndrome, unspecified; L89.892 Pressure ulcer of other site, stage 2; F32.9 Major depressive disorder, single episode, unspecified; I27.20 Pulmonary hypertension, unspecified; I73.9 Peripheral vascular disease, unspecified; I42.0 Dilated cardiomyopathy; I48.0 Paroxysmal atrial fibrillation; T44.7X5A Adverse effect of beta-adrenoreceptor antagonists, initial encounter; T46.1X5A Adverse effect of calcium-channel blockers, initial encounter; T46.4X5A Adverse effect of angiotensin-converting-enzyme inhibitors, initial encounter; I44.7 Left bundle-branch block, unspecified; I44.0 Atrioventricular block, first degree; I35.0 Nonrheumatic aortic (valve) stenosis; D64.9 Anemia, unspecified; E55.9 Vitamin D deficiency, unspecified; G47.33 Obstructive sleep apnea (adult) (pediatric); R74.8 Abnormal levels of other serum enzymes; R79.82 Elevated C-reactive protein (CRP); Z99.2 Dependence on renal dialysis; Z88.0 Allergy status to penicillin; Z88.1 Allergy status to other antibiotic agents; Z88.6 Allergy status to analgesic agent; Z88.8 Allergy status to other drugs, medicaments and biological substances; I25.2 Old myocardial infarction; Z87.440 Personal history of urinary (tract) infections; Z87.891 Personal history of nicotine dependence; Z80.1 Family history of malignant neoplasm of trachea, bronchus and lung; Z79.82 Long term (current) use of aspirin; Z79.899 Other long term (current) drug therapy; Z95.820 Peripheral vascular angioplasty status with implants and grafts; Y92.89 Other specified places as the place of occurrence of the external cause; Z68.20 Body mass index [BMI] 20.0-20.9, adult

== ENCOUNTER 2018-08-10 16:58 | Inpatient (IN) | payer MEDICARE ==
[~2018-08-10] VITALS: Ht 157.4 cm; Wt 48.1 kg
--- NOTE | ~2018-08-10 | EKG ---
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
[~2018-08-10 16:58] MED LIST changes: +AMIODARONE HYD200 MG PO; +CARVEDILOL6.25 MG PO; +COLACE100 MG PO; +DILTIAZEM60 MG PO; +LIPITOR40 MG PO; +MIRALAX17 GM PO; +OMEPRAZOLE D/R20 MG PO
[2018-08-10 17:00] VITALS: BP 165/59
[2018-08-10 18:05] LABS: BASO # 0.1 10*3/uL (0.0-0.1); BASO % 0.6 % (0.0-1.0); EOS # 0.7 10*3/uL (0.0-0.4); HEMOGLOBIN 11.7 g/dl (12.0-16.0); LYMPH # 0.5 10*3/uL (1.3-4.4); LYMPH % 6.5 % (27.0-41.0); MEAN CELL VOLUME 95.7 fl (81.0-99.0); MEAN CORPUSCULAR HGB 31.1 pg (27.0-31.0); MEAN CORPUSCULAR HGB CONC 32.5 g/dl (33.0-37.0); MEAN PLATELET VOLUME 11.6 fl (9.6-12.3); MONO # 0.8 10*3/uL (0.1-1.0); MONO % 9.1 % (3.0-9.0); NEUT # 6.3 10*3/uL (2.3-7.9); NEUT % 75.3 % (47.0-73.0); PLATELET COUNT AUTOMATED 201 10*3/uL (130-400); RED BLOOD COUNT 3.76 10*6/uL (4.10-5.10); RED CELL DISTRI WIDTH 15.4 % (0-14.5); WHITE BLOOD COUNT 8.4 10*3/uL (4.8-10.8)
[2018-08-10 18:15] LABS: ACT PARTIAL THROMBO TIME 25.1 SECONDS (20.8-31.5)
[2018-08-10 18:25] LABS: ALBUMIN 2.9 gm/dl (3.1-4.5); CREATININE 2.85 mg/dL (0.55-1.02); POTASSIUM 4.2 mmol/L (3.5-5.1); TOTAL PROTEIN 7.5 gm/dL (6.4-8.2)
--- NOTE | 2018-08-10 18:25 | NUR ---
CRITICAL LAB GIVEN TO DR BURNETTE
[2018-08-10 18:27] LABS: TROPONIN I 0.214 ng/ml (<0.045)
[2018-08-10 18:34] VITALS: BP 160/92
--- NOTE | 2018-08-10 18:58 | NUR ---
PT WAS ORDERED ZYVOX, CALLED PHARMACY TO SEND, MART SENT TO 5E WHERE THE PT WAS BEING ADMITTED, NOTIFIED 5E RN DURING REPORT.
[2018-08-10 19:00] VITALS: BP 155/47
--- NOTE | 2018-08-10 19:00 | NUR ---
Time: 1899 A 72 year old FEMALE admitted to 5E under services of KIA MOHR DO Pt. arrived via bed from ER. Chief complaint: CELLULITIS OF RIGHT FOOT, MULTIPLE BILATERAFOOT/LEG WOUNDS. PT ORIENTED TO ROOM AND CALL LIGHT. ASSESSMENT COMPLETED, SEE ASSESSMENT SCREEN AND WOND SCREENS. BELONGINGS ACCOUNTED FOR. HEALTHY LIFESTYLES GUIDE REVIEWED. PHOTO TECH APPLIED TO PT. SHE IS CURRENTLY NSR WITH A HEART RATE IN THE 70'S. WILL CONTINUE TO MONITOR PT SHASHA ALMAZAN
[2018-08-10 20:00] VITALS: BP 154/55
[2018-08-10] MEDS ORDERED: COREG25 MG PO (20:34)
--- NOTE | 2018-08-10 20:46 | NUR ---
DR. GALLEGOS NOTIFIED MED REC IS UP TO DATE.
[2018-08-10 21:32] VITALS: BP 160/58
--- NOTE | 2018-08-10 21:37 | NUR ---
DR. GALLEGOS NOTIFIED OF CRITICAL TROPONIN OF 0.202. NO NEW ORDERS GIVEN AT THIS TIME. WILL CONTINUE TO MONITOR.
--- NOTE | 2018-08-10 23:27 | NUR ---
[facility]YS[facility] NOTIFIED OF CONSULT WITH DR. MARK
[2018-08-11] VITALS: BP 147/55
--- NOTE | 2018-08-11 01:04 | NUR ---
DR. GALLEGOS NOTIFIED OF NEED FOR WOUND ORDERS. SHE WAS AWARE WOUND CARE WAS ALREADY CONSULTED AND STATED TO SEE WHAT THEY SAY REGARDING ORDERS WHEN THEY SEE HER. NO NEW ORDERS GIVEN AT THIS TIME. WILL CONTINUE TO MONITOR PT.
--- NOTE | 2018-08-11 01:12 | NUR ---
DR. GALLEGOS NOTIFIED OF CRITICAL TROPONIN OF 0.212. NO NEW ORDERS GIVEN
--- NOTE | 2018-08-11 04:37 | NUR ---
PT IS RESTING IN BED AT THIS TIME WITH NO S/S OF PAIN OR DISCOMFORT. REPSIRATIONS ARE EASY AND UNLABORED ON ROOM AIR. SHE IS CURRENTLY BORDERLINE 1ST DEGREE HEART BLOCK ON THE MONITOR WITH A HEART RATE IN THE 70'S. BED IS LOCKED AND IN THE LOWEST POSITION. CALL LIGHT IS WITHIN REACH. WILL CONTINUE TO MONITOR PT
--- NOTE | 2018-08-11 05:52 | NUR ---
ROSARIONAGA HINKLE [id number] Please refer to the physician's history and physical for past medical history, comorbid conditions, and allergies. Diagnosis: CELLULITIS OF RIGHT FOOT Matthew Score: 17,AT RISK WOUND DESCRIPTIONS: Location of the wound: right index finger Thickness: Full Size: 0.3cm x 0.4cm x <0.1cm Tunneling: none Undermining: none Sinus Tract: none Presence of Exudate: none Amount: None Color: Brown Odor: None Periwound Skin Appearance: Erythema Wound edges: closed Pain (associated with wound): none at time of assessment How does patient state this happened? pt stated she bumped it on the door If wound is on legs/feet or hands, capillary refill time, pulses, color temp, sensation: Location of the wound: left lateral leg proximal Thickness: Full Size: 6.7cm x 2.1cm x <0.1cm Tunneling: none Undermining: none Sinus Tract: none Presence of Exudate: none Amount: None Color: Purple, black, brown, red, yellow Odor: None Periwound Skin Appearance: Erythema Wound edges: closed Pain (associated with wound): very tender to touch How does patient state this happened? pt stated had for while unable to get treatment due cardiac issues Location of the wound: left lateral leg distal Thickness: Full Size: 1.2cm x 0.4cm x 0.2cm Tunneling: none Undermining: none Sinus Tract: none Presence of Exudate: none Amount: None Color: Brown, red Odor: None Periwound Skin Appearance: Erythema Wound edges: closed Pain (associated with wound): very tender to touch How does patient state this happened? How does patient state this happened? pt stated had for while unable to get treatment due cardiac issues Location of the wound: tip of left great toe Thickness: Full Size: 0.1cm x 0.4cm x <0.1cm Tunneling: none Undermining: none Sinus Tract: none Presence of Exudate: none Amount: None Color: Yellow Odor: None Periwound Skin Appearance: Erythema Wound edges: approximated Pain (associated with wound): very tender to touch How does patient state this happened? pt stated had for while unable to get treatment due cardiac issues Location of the wound: medial aspect of left great toe Thickness: Full Size: 0.1cm x 0.7cm x <0.1cm Tunneling: none Undermining: none Sinus Tract: none Presence of Exudate: none Amount: None Color: Purple, red Odor: None Periwound Skin Appearance: Normal Wound edges: closed Pain (associated with wound): very tender to touch How does patient state this happened? pt stated had for while unable to get treatment due cardiac issues Location of the wound: distal aspect of right great toe Thickness: Full Size: 0.3cm x 0.4cm x <0.1cm Tunneling: none Undermining: none Sinus Tract: none Presence of Exudate: none Amount: None Color: Black, brown Odor: None Periwound Skin Appearance: Erythema Wound edges: closed Pain (associated with wound): very tender to touch How does patient state this happened? pt stated had for while unable to get treatment due cardiac issues Location of the wound: medial aspect of right great toe Thickness: Full Size: 0.7cm x 1.0cm x <0.1cm Tunneling: none Undermining: none Sinus Tract: none Presence of Exudate: none Amount: None Color: Brown, black Odor: None Periwound Skin Appearance: Erythema Wound edges: closed Pain (associated with wound): very tender to touch How does patient state this happened? pt stated had for while unable to get treatment due cardiac issues Location of the wound: proximal aspect of right great toe Thickness: Full Size: 2.3cm x 1.8cm x <0.1cm Tunneling: none Undermining: none Sinus Tract: none Presence of Exudate: none Amount: None Color: Black, brown Odor: None Periwound Skin Appearance: Erythema Wound edges: closed Pain (associated with wound): very tender to touch How does patient state this happened? pt stated had for while unable to get treatment due cardiac issues Location of the wound: right 2nd toe Thickness: Full Size: 0.6cm x 1.0cm x <0.1cm Tunneling: none Undermining: none Sinus Tract: none Presence of Exudate: none Amount: None Color: Black, brown Odor: None Periwound Skin Appearance: Normal Wound edges: approximated Pain (associated with wound): tender to touch How does patient state this happened? pt stated had for while unable to get treatment due cardiac issues Location of the wound: right 3rd toe Thickness: Full Size: 2.8cm x 2.5cm x <0.1cm Tunneling: none Undermining: none Sinus Tract: none Presence of Exudate: none Amount: None Color: Black, brown Odor: None Periwound Skin Appearance: Erythema Wound edges: closed Pain (associated with wound): very tender to touch How does patient state this happened? pt stated had for while unable to get treatment due cardiac issues Coccyx is red and blanchable at time of assessment. Surface the patient is resting on: Isoflex SKIN PREVENTION RECOMMENDATION: 1. Pressure redistribution support surface as appropriate 2. Elevate heels 3. Remove boots/TEDS every shift and reapply 4. Head of bed 30 degrees as tolerated 5. Assess nutrition and hydration 6. Manage moisture 7. Avoid the use of containment devices while in bed 8. Use absorptive products on surfaces limit layers of linens on bed 9. Turn and reposition every 1-2 hours in bed and every 1 hour in chair as tolerated 10. Weight shifts every 15 minutes while up in chair 11. Offloading with pillows or device to keep heels elevated off bed 12. Monitor skin at least every shift 13. Inspect under medical devices twice a day WOUND TREATMENT RECOMMENDATIONS: consult podiatry for areas to BLE's. Cleanse all areas to bilateral lower extremities areas with betadine and cover with dsd daily. Heel raiser pro boots while in bed. Wheelchair cushion while in bed. Cleanse coccyx with soap and water and apply hydraguard every shift and prn for soiling. Cleanse right index finger with nss and apply antibiotic ointment and cover with bandaid daily.
--- NOTE | 2018-08-11 06:13 | NUR ---
PT TOLERATED MERREM WELL
[2018-08-11 06:14] LABS: HEMATOCRIT 34.8 % (37.0-47.0); HEMOGLOBIN 11.2 g/dl (12.0-16.0); MEAN CELL VOLUME 97.2 fl (81.0-99.0); MEAN CORPUSCULAR HGB 31.3 pg (27.0-31.0); MEAN CORPUSCULAR HGB CONC 32.2 g/dl (33.0-37.0); MEAN PLATELET VOLUME 11.2 fl (9.6-12.3); PLATELET COUNT AUTOMATED 179 10*3/uL (130-400); RED BLOOD COUNT 3.58 10*6/uL (4.10-5.10); RED CELL DISTRI WIDTH 15.2 % (0-14.5); WHITE BLOOD COUNT 6.1 10*3/uL (4.8-10.8)
--- NOTE | 2018-08-11 06:17 | NUR ---
Spoke with Dr. Su regarding wound care recommendations and she stated she will pass it on to the day team.
[2018-08-11 06:28] LABS: ALBUMIN 2.7 gm/dl (3.1-4.5); CREATININE 3.77 mg/dL (0.55-1.02); PHOSPHOROUS 5.1 mg/dL (2.5-4.9); POTASSIUM 4.8 mmol/L (3.5-5.1); TOTAL PROTEIN 6.8 gm/dL (6.4-8.2)
[2018-08-11 06:32] LABS: TROPONIN I 0.224 ng/ml (<0.045)
--- NOTE | 2018-08-11 06:33 | NUR ---
DR. GALLEGOS NOTIFIED OF CRTITICAL TROPONIN OF 0.224. NO NEW ORDERS GIVEN.
--- NOTE | 2018-08-11 06:41 | NUR ---
DR. GARCIA NOTIFIED OF CONSULT. HE STATES THEY WILL BE BY TO SEE HER THIS MORNING. Y
[2018-08-11 06:44] LABS: TOTAL CELLS COUNTED 100 #CELLS
[2018-08-11 06:47] LABS: BASOPHILS 1 % (0-1); PLATELET SUFFICIENCY NORMAL (NORMAL)
[2018-08-11 06:50] LABS: VITAMIN D, 25-HYDROXY 22.3 ng/mL (30-100)
[2018-08-11 08:00] VITALS: BP 140/48
--- NOTE | 2018-08-11 09:00 | NUR ---
PHYSICAL THERAPY PAtient evaluated on 5, full evaluation to follow. Continue with PT as per plan of care with fall, alarms, wounds and min (A) precautions. Recommend SNF for d/c planning. Patient is moderate complexity via chart review, tests and evluation: [id number]. Thank you for this referral. Hannah Li,PT
--- NOTE | 2018-08-11 09:00 | NUR ---
Nail Tech in to talk to patient. Patient states lives at home with her daughter. There are 3 steps in the home. Physician: Milan Morelos Pharmacy: [facility]: [facility] Patient's level of ADLs: MODERATE ASSIST Patient has working utilities: yes DME: c-pap Follow-up physician's appointment after d/c: will be made by the hospitalist nurse director upon discharge Does patient want to access PORTAL?: no Discharge plan discussed with patient. She lives at home with her daughter. She states they are moving to [place]. She is independent in her ADLs and ambulation when her legs are not hurting. Discussed short term SNF and she is agreeable. When given a list of facilities she chose [facility] and she has been there previously. She states she missed an appt today with Dr. Wooten's associates. Hospitalist nurse director notified. She is MWF dialysis, chair time is 11am, and her daughter normally transports her. corporate meeting planner notified. PHOEBE VEGA
--- NOTE | 2018-08-11 09:15 | NUR ---
MEDICATED WITH PO TYLENOL ORDERED PER PT REQUEST FOR C/O PAIN "ALL OVER".
--- NOTE | 2018-08-11 09:43 | NUR ---
MESSAGE LEFT FOR DR CORONA FOR CONSULT.
--- NOTE | 2018-08-11 10:10 | NUR ---
Dr. Tucker notified of wound care recommendations.
--- NOTE | 2018-08-11 10:18 | NUR ---
Occupational Therapy evaluation completed on 5 with full eval to follow. Precautions include fall risk, pain BLEs, dialysis;AV fistula, bed alarm. Patient is moderate complexity level 22205 via chart review, testing and evaluation. Recommend OT per POC and SNF to enable max level of functioning. Thank you. Marilee Grant OTR/L
--- NOTE | 2018-08-11 10:41 | NUR ---
24 HR chart check completed.
--- NOTE | 2018-08-11 10:48 | NUR ---
patient requesting referral to [facility]; contacted facility and faxed initial referral. Will fax PT/OT evals when available. Waiting on review/acceptance.
[2018-08-11 12:00] VITALS: BP 125/46
--- NOTE | 2018-08-11 12:30 | NUR ---
BLE WOUNDS CLEANED WITH BETADINE AND HEEL PROTECTORS APPLIED. PT IS REFUSING DRY GAUZE DRESSINGS TO BE APPLIED.
[2018-08-11 16:00] VITALS: BP 148/53
--- NOTE | 2018-08-11 16:00 | NUR ---
Patient resting quietly with no c/o discomfort. Respirations easy and regular. Vital signs stable. No overt distress. MILDRED MCCORD
[2018-08-11 20:00] VITALS: BP 139/46
[2018-08-12] VITALS: BP 139/43
--- NOTE | 2018-08-12 04:10 | NUR ---
PT IS RESTING IN BED AT THIS TIME WITH NO S/S OF PAIN OR DISTRESS. RESPIRATIONS ARE EASY AND NONLABORED ON ROOM AIR. SHE IS NSR ON THE MONITOR WITH A HEART RATE IN THE 70'S. PATIENT HAS VOICED NO MORE COMPLAINTS OF DIARRHEA TONIGHT. CDIF PANEL IS PENDING. BED IS LOCKED AND IN THE LOWEST POSITION, CALL LIGHT IS WITHIN REACH. WILL CONTINUE TO MONITOR PT
--- NOTE | 2018-08-12 04:39 | NUR ---
Recommend follow up for wound care in outpatient setting patient being discharge to another facility at this time.
[2018-08-12 06:29] LABS: HEMATOCRIT 38.6 % (37.0-47.0); HEMOGLOBIN 12.4 g/dl (12.0-16.0); MEAN CELL VOLUME 97.5 fl (81.0-99.0); MEAN CORPUSCULAR HGB 31.3 pg (27.0-31.0); MEAN CORPUSCULAR HGB CONC 32.1 g/dl (33.0-37.0); MEAN PLATELET VOLUME 11.5 fl (9.6-12.3); PLATELET COUNT AUTOMATED 231 10*3/uL (130-400); RED BLOOD COUNT 3.96 10*6/uL (4.10-5.10); WHITE BLOOD COUNT 6.6 10*3/uL (4.8-10.8)
[2018-08-12 06:55] LABS: ALBUMIN 2.8 gm/dl (3.1-4.5); CREATININE 5.21 mg/dL (0.55-1.02); PHOSPHOROUS 6.5 mg/dL (2.5-4.9); POTASSIUM 4.4 mmol/L (3.5-5.1)
[2018-08-12 07:30] VITALS: BP 157/38
--- NOTE | 2018-08-12 07:30 | NUR ---
Patient resting quietly with no c/o discomfort. Respirations easy and regular. Vital signs stable. No overt distress. MILDRED MCCORD
[2018-08-12 07:41] LABS: PLATELET SUFFICIENCY NORMAL (NORMAL); TOTAL CELLS COUNTED 100 #CELLS
--- NOTE | 2018-08-12 07:54 | NUR ---
Patient updates and PT/OT evals faxed to [facility]; asked to start precert. Waiting for auth.
[2018-08-12 08:00] VITALS: BP 157/38
--- NOTE | 2018-08-12 08:30 | NUR ---
Prefabricator in to see patient. No new needs or request at this time. When medically stable and auth is received she will be discharged to [facility]. supply chain planner following.
--- NOTE | 2018-08-12 09:45 | NUR ---
OT NOTE Attempted to see pt this A.M. for OT session and upon arrival pt was out of the room for dialysis. Will check back at a later time/date. ROCKY Azul/Georgie
--- NOTE | 2018-08-12 09:48 | NUR ---
MEDICATED WITH PO NORCO ORDERED PER PT REQUEST FOR C/O PAIN RATED 10/10 TO BILAT LEGS/FOOT WOUNDS REPORTED BY THE TRAVEL DIRECTOR.
--- NOTE | 2018-08-12 10:29 | NUR ---
PHYSICAL THERAPY Patient is in dialysis at this time. Will check back later. SAADIA KWAN RURAL MAIL CARRIER
--- NOTE | 2018-08-12 11:30 | NUR ---
MEDICATIONS EFFECTIVE FOR PAIN.
[2018-08-12 12:00] VITALS: BP 108/53
--- NOTE | 2018-08-12 12:31 | NUR ---
24 HR chart check completed.
--- NOTE | 2018-08-12 13:34 | NUR ---
PHYSICAL THERAPY Patient is eating breakfast at this time. Will check back later. SAADIA KWAN ELECTROCARDIOGRAPH TECHNICIAN
--- NOTE | 2018-08-12 14:06 | NUR ---
OT NOTE Pt was seen this P.M. 1:1 for 16 minute OT session. Upon arrival pt was supine in bed crying and yelling out due to pain in BLE which she would not rate on 0-10 pain scale. Pt transferred supine to sit EOB with Salvador for assist with UB. Pt donned B slippers while sitting EOB with SBA. Functional mobility completed into the bathroom with CGA and use of w/w with constant verbal instructions and education on walker safety due to being impulsive, poor turns, and poor walker navigation. Pt had multiple LOB due to the reasons listed above that required Salvador to correct. Pt transferred on to standard commode with Salvador due to poor safety awareness with alignment of commode. Clothing management completed with modA and toilet hygiene completed with supervision while seated. Pt transferred off standard commode with Salvador and use of grab bar. Pt returned to EOB where she transferred sit to supine with SBA. There she was left with call light in hand, tray table in place, and bed alarm activated for safety. Continue with rec D/C plan to SNF. ROCKY Azul/Georgie
--- NOTE | 2018-08-12 15:50 | NUR ---
DR STOCK PAGED FOR NEW CONSULT.
[2018-08-12 16:00] VITALS: BP 135/46
--- NOTE | 2018-08-12 16:00 | NUR ---
Patient resting quietly with no c/o discomfort. Respirations easy and regular. Vital signs stable. No overt distress. MILDRED MCCORD
[2018-08-12 20:00] VITALS: BP 132/40
--- NOTE | 2018-08-12 22:01 | NUR ---
24 HR chart check completed.
[2018-08-13] VITALS: BP 151/52
[2018-08-13 07:05] VITALS: BP 142/42
[2018-08-13 07:10] LABS: BASO # 0.1 10*3/uL (0.0-0.1); BASO % 0.8 % (0.0-1.0); EOS # 0.7 10*3/uL (0.0-0.4); EOS % 12.1 % (1.0-4.0); HEMATOCRIT 39.9 % (37.0-47.0); HEMOGLOBIN 12.1 g/dl (12.0-16.0); LYMPH # 0.6 10*3/uL (1.3-4.4); LYMPH % 10.4 % (27.0-41.0); MEAN CELL VOLUME 99.3 fl (81.0-99.0); MEAN CORPUSCULAR HGB 30.1 pg (27.0-31.0); MEAN CORPUSCULAR HGB CONC 30.3 g/dl (33.0-37.0); MEAN PLATELET VOLUME 11.4 fl (9.6-12.3); MONO # 0.7 10*3/uL (0.1-1.0); MONO % 11.4 % (3.0-9.0); NEUT # 3.9 10*3/uL (2.3-7.9); PLATELET COUNT AUTOMATED 226 10*3/uL (130-400); RED BLOOD COUNT 4.02 10*6/uL (4.10-5.10); RED CELL DISTRI WIDTH 14.9 % (0-14.5)
[2018-08-13 07:25] LABS: ALBUMIN 2.9 gm/dl (3.1-4.5); CREATININE 3.69 mg/dL (0.55-1.02); POTASSIUM 4.7 mmol/L (3.5-5.1)
[2018-08-13 07:26] LABS: PHOSPHOROUS 6.3 mg/dL (2.5-4.9)
--- NOTE | 2018-08-13 07:30 | NUR ---
24 HR chart check completed.
--- NOTE | 2018-08-13 07:56 | NUR ---
Patient accepted to [facility], precert has been started, waiting on auth.
--- NOTE | 2018-08-13 08:00 | NUR ---
LATE ENTRY FOR 08/12/2018 PHYSICAL THERAPY Patient presented to therapy in supine with bilateral LE pain that is causing patient to cry and have discomfort. Patient agrees to therapy session. Patient was identified by name and . Patient performed supine to sitting at EOB transfer with MIN A X 1. Patient transferred STS with MIN A X 1. Patient ambulated 48' x 1 with CGA X 1 with complaints of increased bilateral LE pain with ambulation. Patien does not want to try stairs due to pain in LEs. Patient transferred back to supine in bed with MIN A X 1. Patient was left in supine with head of bed elevated, call light within reach, and BED ALARM ACTIVATED. Patient was 1:1 with this DRAWING IN MACHINE TENDER for 15 minutes total. NOTE FOR 08/12/2018 SAADIA KWAN DRAWING IN MACHINE TENDER
--- NOTE | 2018-08-13 08:50 | NUR ---
OT NOTE Pt was seen this A.M. 1:1 for 25 minute OT session. Upon arrival pt was supine in bed, pt identified by name and . Pt had reports of 4-5/10 B foot pain. Pt transferred supine to sit EOB with SBA. While sitting EOB pt donned slippers with SBA. Sit to stand completed from bed level with CGA and use of w/w for UE support. Functional mobility completed into the bathroom with CGA and use of w/w with verbal instructions to slow down due to being impulsive and also staying far away from the walker. While in the bathroom pt required verbal instructions to improve tight turning with the walker due to having LOB requiring Salvador to correct. Pt transferred on/off standard commode with SBA and use of grab bar. Clothing management completed with CGA and toilet hgyiene completed with distnat supervision while seated. Pt then stood sink side while washing her hands and face with SBA, pt being unsteady at two points requiring CGA to correct. Pt then returned to the EOB for a seated rest break. Completed multiple sit to stand transfers from bed level with CGA and challenged pt's static standing tolerance needed for increased I in self care tasks and functional transfers, pt was able to tolerate aprox 4 minutes before sitting due to fatigue. Pt transferred back into bed sit to supine with SBA where she was left with call light in hand, tray table in place, and bed alarm activated for safety. Continue with rec D/C plan to SNF. ROCKY Azul/Georgie
--- NOTE | 2018-08-13 09:11 | NUR ---
Patient has received auth to go to [facility], she can go if medically stable for discharge. Nurse director for hospitalists notified.
--- NOTE | 2018-08-13 09:20 | NUR ---
PHYSICAL THERAPY Patient presented to therapy in supine wit hhead of bed slightly elevated and report of feeling much better than she did yesterday after having dialysis. Patient agrees to therapy session. Patient was identified by name and . Patient performed supine to sitting at EOB transfer with MIN A X 1. Patient performed transfer STS with MIN A X 1 with verbal cues for pushing off bed with hands. Patient ambulated 35' x 1 stairwell with CGA X 1. Patient then ascended and descended x 4 steps with CGA X 1 and use of handrailing on L side. Patient performed ambulated out of stairwell then began to get neausous and had ot ambulae back to sitting EOB and had emesis. Patient ambulated with W/W. Patient sat and rested. Patient evntually felt better and was able to perform STS transfer with MIN A X 1 WITH VERABL CUES FOR PUSHING OFF BED WITH HANDS. Patient ambulated with W/W for 50' x 2 with CGA X 1 and verbal cues for upright posture and staying within BILLY of walker. Patient transferred back to supine in bed with MIN A X 1. Patient was left in supine in bed with head of bed elevated, call light within reach, and bed alarm activated. Patient was 1:1 with this [employer] for 25 minutes total. SAADIA KWAN TPA
--- NOTE | 2018-08-13 11:23 | NUR ---
Counter Dish Carrier in to see patient. Discussed palliative care and she is not interested currently. Leaflet given to patient for her to read over. No new needs or request at this time. When medically stable she will be discharged to [facility]. neighborhood planner following.
[2018-08-13] MEDS ORDERED: Duragesic 75 M75 MCG T (11:36)
[2018-08-13 12:00] VITALS: BP 156/51
--- NOTE | 2018-08-13 12:25 | NUR ---
Patient is being discharged to [facility]. Patient is calling family in the local area to transport her later this afternoon. Nursing/airline stewardess and NH notified.
--- NOTE | 2018-08-13 13:17 | NUR ---
PT REFUSING DISCHARGE WOUND PICTURES STATING "I'VE ALREDAY HAD THEM AND I'LL HAVE TO HAVE MORE AT [facility]".
--- NOTE | 2018-08-13 14:06 | NUR ---
PHYSICAL THERAPY CO-SIGN I approve of the Phyical Therapy notes written above. TISHA PATINO PT
--- NOTE | 2018-08-13 14:07 | NUR ---
LEAVING VIA WHEELCHAIR ESCORT WITH PACKET IN HAND.
--- NOTE | 2018-08-13 14:15 | NUR ---
LEFT VOICEMAIL ON [facility] ANSWERING SERVICE FOR CALLBCJOEL TO GIVE REPORT.
--- NOTE | 2018-08-13 15:07 | NUR ---
OCCUPATIONAL THERAPY CO-SIGN I approve of the Occupational Therapy notes written above. MORENITA ROSADO OTR/Georgie
--- NOTE | 2018-08-13 16:23 | NUR ---
[facility] FINALLY REACHED, REPORT CALLED, QUESTIONS ANSWERED.
[2018-10-08] MEDS ORDERED: DURAGESIC1 EACH TD (20:27)
[2018-10-08] MEDS ORDERED: GABAPENTIN100 M2 PO (20:28)
[2018-10-09] MEDS ORDERED: VELPHORO500 M1 PO (15:41)
[2018-10-17] MEDS ORDERED: DURAGESIC1 EACH TD (11:35)
== END 2018-08-13 14:07 | disposition other institution (70) | DRG 592 ==
LOC: ED 16:58 → EDHOLD 17:41 → 5E 17:41
PROVIDERS: Emergency Medicine; Internal Medicine Nephrology; ADMIT Internal Medicine
PROC: 5A1D70Z Performance of Urinary Filtration, Intermittent, Less than 6 Hours Per Day (ICD-10-PCS; principal; 2018-08-12)
DX: L97.919 Non-pressure chronic ulcer of unspecified part of right lower leg with unspecified severity (principal); N18.6 End stage renal disease; E87.2 Acidosis; I50.42 Chronic combined systolic (congestive) and diastolic (congestive) heart failure; E44.0 Moderate protein-calorie malnutrition; L03.115 Cellulitis of right lower limb; Z68.1 Body mass index [BMI] 19.9 or less, adult; I13.2 Hypertensive heart and chronic kidney disease with heart failure and with stage 5 chronic kidney disease, or end stage renal disease; L97.929 Non-pressure chronic ulcer of unspecified part of left lower leg with unspecified severity; E87.8 Other disorders of electrolyte and fluid balance, not elsewhere classified; D72.810 Lymphocytopenia; K58.9 Irritable bowel syndrome, unspecified; I27.20 Pulmonary hypertension, unspecified; F41.9 Anxiety disorder, unspecified; I25.10 Atherosclerotic heart disease of native coronary artery without angina pectoris; F32.9 Major depressive disorder, single episode, unspecified; K21.9 Gastro-esophageal reflux disease without esophagitis; G47.33 Obstructive sleep apnea (adult) (pediatric); I73.9 Peripheral vascular disease, unspecified; R73.9 Hyperglycemia, unspecified; D63.8 Anemia in other chronic diseases classified elsewhere; M89.9 Disorder of bone, unspecified; E83.9 Disorder of mineral metabolism, unspecified; I35.0 Nonrheumatic aortic (valve) stenosis; I35.8 Other nonrheumatic aortic valve disorders; E83.39 Other disorders of phosphorus metabolism; Z99.2 Dependence on renal dialysis; Z88.6 Allergy status to analgesic agent; Z88.0 Allergy status to penicillin; Z88.8 Allergy status to other drugs, medicaments and biological substances; I25.2 Old myocardial infarction; Z80.1 Family history of malignant neoplasm of trachea, bronchus and lung; Z80.0 Family history of malignant neoplasm of digestive organs; Z87.891 Personal history of nicotine dependence

== ENCOUNTER 2018-10-23 23:45 | Emergency (ER) | payer MEDICARE ==
[~2018-10-23] VITALS: Ht 162.5 cm; Wt 49.9 kg
--- NOTE | ~2018-10-23 | EKG ---
[place], [place] ELECTROCARDIOGRAM REPORT NAME: NAGA ROSARIO UNIT #: [id number] ROOM: DOCTOR: GUME DRAFT REPORT BIRTHDATE: [birth year] [facility] Test Date: 2018-10-23 Test Time: 23:49:48 Pat Name: NAGA ROSARIO Department: Room: Gender: F Mechanical Reliability Engineer: : 1945 Requested By: TIFFANIE SAUCEDA Order Number: [id number] Reading MD: Lara Tamez MD Measurements Intervals [place] Rate: 86 P: -82 LA: 119 QRS: 6 QRSD: 179 T: 171 QT: 498 QTc: 596 Interpretive Statements Sinus or ectopic atrial rhythm Borderline short LA interval Left bundle branch block Baseline wander in lead(s) V3 Compared to ECG 10/11/2018 19:48:34 Ectopic atrial rhythm now present Sinus rhythm no longer present First degree AV block no longer present Electronically Signed On 10-29-2018 14:28:50 PDT by Lara Tamez MD CM:EKGRPT:ELECTROCARDIOGRAM REPORT [id number] TIFFANIE BAPTISTE DRAFT REPORT TIFFANIE SAUCEDA DO
[~2018-10-23 23:45] MED LIST changes: +COREG25 MG PO; +Duragesic 75 M75 MCG T; +GABAPENTIN100 M2 PO
[2018-10-24 00:29] LABS: BASO # 0.1 10*3/uL (0.0-0.1); BASO % 0.5 % (0.0-1.0); EOS # 0.6 10*3/uL (0.0-0.4); EOS % 5.3 % (1.0-4.0); HEMATOCRIT 31.7 % (37.0-47.0); HEMOGLOBIN 10.3 g/dl (12.0-16.0); LYMPH # 0.8 10*3/uL (1.3-4.4); LYMPH % 6.7 % (27.0-41.0); MEAN CELL VOLUME 97.2 fl (81.0-99.0); MEAN CORPUSCULAR HGB 31.6 pg (27.0-31.0); MEAN CORPUSCULAR HGB CONC 32.5 g/dl (33.0-37.0); MEAN PLATELET VOLUME 10.9 fl (9.6-12.3); MONO # 0.6 10*3/uL (0.1-1.0); MONO % 4.8 % (3.0-9.0); PLATELET COUNT AUTOMATED 311 10*3/uL (130-400); RED BLOOD COUNT 3.26 10*6/uL (4.10-5.10); RED CELL DISTRI WIDTH 13.8 % (0-14.5); WHITE BLOOD COUNT 12.2 10*3/uL (4.8-10.8)
[2018-10-24 00:39] LABS: ACT PARTIAL THROMBO TIME 24.7 SECONDS (20.8-31.5)
[2018-10-24 00:50] LABS: ALBUMIN 3.3 gm/dl (3.1-4.5); CREATININE 4.31 mg/dL (0.55-1.02); POTASSIUM 4.9 mmol/L (3.5-5.1); TOTAL PROTEIN 7.6 gm/dL (6.4-8.2)
[2018-10-24 00:53] LABS: TROPONIN I 0.162 ng/ml (<0.045)
== END 2018-10-24 04:19 | disposition federal hospital, planned readmission (88) ==
LOC: ED 23:45
PROVIDERS: Emergency Medicine
DX: I21.29 ST elevation (STEMI) myocardial infarction involving other sites (principal); I25.10 Atherosclerotic heart disease of native coronary artery without angina pectoris; I35.0 Nonrheumatic aortic (valve) stenosis; G89.29 Other chronic pain; I13.2 Hypertensive heart and chronic kidney disease with heart failure and with stage 5 chronic kidney disease, or end stage renal disease; N18.6 End stage renal disease; I48.91 Unspecified atrial fibrillation; I25.2 Old myocardial infarction; I50.9 Heart failure, unspecified; Z99.2 Dependence on renal dialysis; Z98.890 Other specified postprocedural states; Z88.1 Allergy status to other antibiotic agents; Z88.5 Allergy status to narcotic agent; Z88.8 Allergy status to other drugs, medicaments and biological substances; Z79.899 Other long term (current) drug therapy; Z79.82 Long term (current) use of aspirin

== ENCOUNTER 2018-11-30 14:03 | Emergency (ER) | payer MEDICARE ==
[~2018-11-30] VITALS: Ht 160 cm; Wt 52.2 kg
== END 2018-11-30 14:33 | disposition short-term general hospital (02) ==
LOC: ED 14:03
DX: I97.620 Postprocedural hemorrhage of a circulatory system organ or structure following other procedure (principal); I25.10 Atherosclerotic heart disease of native coronary artery without angina pectoris; K21.9 Gastro-esophageal reflux disease without esophagitis; I11.0 Hypertensive heart disease with heart failure; I50.40 Unspecified combined systolic (congestive) and diastolic (congestive) heart failure; Z87.891 Personal history of nicotine dependence; Z88.0 Allergy status to penicillin; Z88.1 Allergy status to other antibiotic agents; Z88.6 Allergy status to analgesic agent; Z88.8 Allergy status to other drugs, medicaments and biological substances; Z79.899 Other long term (current) drug therapy; Y83.8 Other surgical procedures as the cause of abnormal reaction of the patient, or of later complication, without mention of misadventure at the time of the procedure; Y92.89 Other specified places as the place of occurrence of the external cause